=== PATIENT | female | born 1995 | race Caucasian/White ===

== ENCOUNTER 2021-08-20 14:27 | Emergency (ER) | payer BC, OTHER ==
--- NOTE | 2021-08-20 15:27 | RAD REPORT ---
EXAM DESCRIPTION: RAD - Chest Single View - 08/20/2021 3:07 pm CLINICAL HISTORY: SOB;Palpitations COMPARISON: No comparisonsNo comparisons FINDINGS: Lines: None. Lungs: No evidence of edema or pneumonia. Pleural: No significant pleural effusions or pneumothorax. Cardiac: The heart size is within normal limits. Bones: No acute fractures. Other: IMPRESSION: No acute cardiopulmonary disease.
[2021-08-20] MEDS ORDERED: METOCLOPRAMIDE 10 MG/2mL INJ ONE (15:33)
[2021-08-20] MEDS ORDERED: ACETAMINOPHEN 500 MG TAB ONE ×2 (15:33→15:59)
[2021-08-20] MEDS ORDERED: NA CHLORIDE 0.9% 1,000 ML ONE (15:34)
[2021-08-20 15:49] LABS: Urine Blood Negative (Negative); Urine Glucose Negative (Negative); Urine Protein Negative (Negative); Urine Specific Gravity 1.015 (1.005-1.030); Urine pH 6.5 (5.0-7.0)
[2021-08-20 15:50] LABS: Absolute Lymphocytes (CBC) 2.9 K/uL (0.7-4.9); Basophils % 0.8 % (0-1.3); Hematocrit 36.1 % (36.0-45.0); Lymphocytes % 22.5 % (15.3-44.8); MPV 7.2 fL (7.6-11.3); RBC Red Blood Cell Count 4.35 M/uL (3.86-4.86)
[2021-08-20 15:53] LABS: Protime INR 0.94
[2021-08-20 16:26] LABS: Urine Specific Gravity/Preg 1.015 (1.005-1.030)
[2021-08-20 16:40] LABS: SARS-COV-2 RT PCR NEGATIVE (NEGATIVE)
--- NOTE | 2021-08-20 17:35 | RAD REPORT ---
EXAM DESCRIPTION: US - UPPER EXTREMITY VENOUS UNILATE - 08/20/2021 5:16 pm CLINICAL HISTORY: Swelling COMPARISON: None. TECHNIQUE: Real-time sonographic evaluation of the left upper extremity deep venous system was perfo rmed. FINDINGS: Normal compressibility, flow augmentation, phasic flow and spontaneous flow is identified in the upper lower extremity venous system. No intraluminal filling defects seen. IMPRESSION: No DVT in the left upper extremity.
--- NOTE | 2021-08-20 17:43 | RAD REPORT ---
EXAM DESCRIPTION: US - Extremity Venous Uni Ltd - 08/20/2021 5:17 pm CLINICAL HISTORY: Swelling COMPARISON: None. TECHNIQUE: Real-time sonographic evaluation of the left lower extremity deep venous system was perfo rmed. FINDINGS: Normal compressibility, flow augmentation, phasic flow and spontaneous flow is identified in the left lower extremity deep venous system. No intraluminal filling defects seen. IMPRESSION: No DVT in the left lower extremity.
[2021-08-20 17:55] LABS: ALT/SGPT 44 U/L (12-78); AST/SGOT 27 U/L (15-37); Albumin 3.8 g/dL (3.4-5.0); Alkaline Phosphatase 98 U/L (45-117); BUN Blood Urea Nitrogen 6 mg/dL (7-18); Bicarbonate 29 mmol/L (21-32); Bilirubin Direct < 0.1 mg/dL (0-0.2); Bilirubin Total 0.3 mg/dL (0.2-1.0); Glucose Level 142 mg/dL (74-106); Magnesium 2.1 mg/dL (1.8-2.4); Potassium 3.8 mmol/L (3.5-5.1); Protein, Total 8.3 g/dL (6.4-8.2); Sodium Level 139 mmol/L (136-145); Troponin (Emerg Dept Use Only) < 0.02 ng/mL (0.0-0.045)
--- NOTE | 2021-08-20 18:23 | ER ---
Nurse's Notes [facility] Name: Ander Lan Age: 26 yrs Sex: Female : 1995 Arrival Date: 08/20/2021 Time: 14:28 Bed 25 Private MD: Neno Arauz Diagnosis: Acute cystitis Presentation: 08/20 14:33 Chief complaint: Patient states: "My heart has been racing, my left arm hurts, my left aa5 leg hurts and it feels like a dull pain". Pt also reports diarrhea that has improved. Pt reports symptoms began on Sunday. Coronavirus screen: diarrhea. Ebola Screen: No symptoms or risks identified at this time. Initial Sepsis Screen: Does the patient meet any 2 criteria? HR > 90 bpm. Does the patient have a suspected source of infection? No. Patient's initial sepsis screen is negative. Risk Assessment: Do you want to hurt yourself or someone else? Patient reports no desire to harm self or others. Onset of symptoms was July 2021. 14:33 Method Of Arrival: Ambulatory 5 14:33 Acuity: CAMILLA 3 aa5 Triage Assessment: 18:41 Headache History: The patient has had previous headaches and this one is similar to jt3 previous episodes. General: Appears. General: Behavior is calm, cooperative. Pain: Pain level that patient reports is acceptable is 5 out of 10 on a pain scale. Pain began 4 hours ago. Also complains of no other associated symptoms. 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 - Social history:: Smoking status: Patient denies any tobacco usage or history of. Screenin:16 Abuse screen: Denies threats or abuse. Denies injuries from another. Nutritional jt3 screening: No deficits noted. Tuberculosis screening: No symptoms or risk factors identified. Fall Risk None identified. Assessment: 15:16 Pain: Complains of pain in left arm and left leg. Neuro: No deficits noted. jt3 Cardiovascular: Reports palpitations. 15:17 General: Patient placed on monitor technician. EKG obtained. Pt. walked independently to jt3 the bathroom. . Vital Signs: 14:33 BP 123 / 88; Pulse 110; Resp 18 S; Temp 98.1(O); Pulse Ox 98% on R/A; Weight 99.79 kg aa5 (R); Height 5 ft. 4 in. (162.56 cm) (R); 16:03 BP 126 / 86; Pulse 86; Resp 16; Temp 99.5; Pulse Ox 98% on R/A; jt3 17:58 BP 113 / 75; Pulse 86; Resp 16; Temp 98.4; Pulse Ox 98% on R/A; jt3 14:33 Body Mass Index 37.76 (99.79 kg, 162.56 cm) aa5 ED Course: 14:28 Patient arrived in ED. as 14:29 Neno Arauz DO is Private Physician. as 14:33 Arm band placed on. aa5 14:34 Triage completed. aa5 14:38 Sulaiman Bruner PA is PHCP. cp 14:38 Frederick Mariano MD is Attending Physician. cp 14:42 Leonidas Wren, THI is Primary Nurse. jt3 15:07 XRAY Chest (1 view) In Process Unspecified. EDMS 15:16 Patient has correct armband on for positive identification. Placed in gown. Bed in low mh5 position. Call light in reach. Side rails up X 1. Adult w/ patient. Warm blanket given. nuclear monitoring technician on. Pulse ox on. NIBP on. 15:16 EKG done, by ED staff, reviewed by Frederick Mariano MD. 5 15:16 No provider procedures requiring assistance completed. jt3 15:30 Inserted saline lock: 20 gauge in left antecubital area, using aseptic technique. jt3 17:16 UPPER EXTREMITY VENOUS UNILATE In Process Unspecified. EDMS 17:16 US Extremity Venous Unilateral Ltd In Process Unspecified. EDMS 18:34 IV discontinued. jt3 Administered Medications: 15:41 Drug: Reglan (metoCLOPramide) 10 mg Route: IVP; Site: left antecubital; jt3 15:41 Drug: Tylenol 1000 mg Route: PO; jt3 15:42 Drug: NS 0.9% 1000 ml Route: IV; Rate: 1 bolus; Site: left antecubital; jt3 18:30 Drug: Rocephin (cefTRIAXone) 1 grams Route: IV; Rate: calculated rate; Site: left jt3 antecubital; Outcome: 18:23 Discharge ordered by MD. marquez 18:40 Discharged to home with family. jt3 18:40 Condition: good 18:40 Discharge instructions given to patient. 18:42 Patient left the ED. jt3 Signatures: Dispatcher [employer] Lizzy Montes Audri, RN RN aa5 Sulaiman Bruner PA PA cp Martinez, Maria 5 Frederick Mariano MD MD ma2 Leonidas Wren RN RN jt3
--- NOTE | 2021-08-20 18:24 | EDPHYS ---
Physician Documentation [facility] Name: Ander Lan Age: 26 yrs Sex: Female : 1995 Arrival Date: 08/20/2021 Time: 14:28 Bed 25 Private MD: Shaista Arauzh ED Physician Frederick Mariano HPI: 08/20 15:05 This 26 yrs old Female presents to ER via Ambulatory with complaints of cp Headache, Leg Pain, Arm Pain, palpitations. 15:05 The patient presents with a history of heart racing. cp 15:05 Context: The symptoms occur at rest. Onset: The symptoms/episode began/occurred 4 cp day(s) ago. Duration: The patient or guardian reports a single episode, that is still ongoing. Associated signs and symptoms: Pertinent positives: pain and swelling of left arm and left leg. 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 - Social history:: Smoking status: Patient denies any tobacco usage or history of. ROS: 15:10 Constitutional: Negative for body aches, chills, fever, poor PO intake. cp 15:10 Eyes: Negative for injury, pain, redness, and discharge. cp 15:10 Cardiovascular: Positive for palpitations, Negative for chest pain, edema. 15:10 Respiratory: Positive for shortness of breath, Negative for cough, wheezing. Exam: 15:15 Constitutional: The patient appears in no acute distress, alert, awake, cp non-diaphoretic, non-toxic, well developed, well nourished, obese. 15:15 Head/Face: Normocephalic, atraumatic. cp 15:15 Eyes: Periorbital structures: appear normal, Pupils: equal, round, and reactive to light and accomodation, Extraocular movements: intact throughout, Conjunctiva: normal, no exudate, no injection, Sclera: no appreciated abnormality, Lids and lashes: appear normal, bilaterally. 15:15 ENT: External ear(s): are unremarkable, Nose: is normal, Mouth: Lips: moist, Oral mucosa: moist, Posterior pharynx: Airway: no evidence of obstruction, patent. 15:15 Neck: ROM/movement: is normal, is supple, without pain, no range of motions limitations, no meningismus. 15:15 Chest/axilla: Inspection: normal. 15:15 Cardiovascular: Rate: tachycardic, Rhythm: regular, Edema: is not appreciated, JVD: is not appreciated. 15:15 Respiratory: the patient does not display signs of respiratory distress, Respirations: normal, no use of accessory muscles, no retractions, labored breathing, is not present, Breath sounds: are clear throughout, no decreased breath sounds, no stridor, no wheezing. 15:15 Abdomen/GI: Inspection: abdomen appears normal, Palpation: abdomen is soft and non-tender, in all quadrants. 15:15 Back: pain, is absent, ROM is normal. 15:15 Musculoskeletal/extremity: Extremities: grossly normal except: noted in the left upper arm and left upper leg: pain, tenderness, ROM: intact in all extremities, Pulses: noted to be 2+ in the right radial artery and left radial artery. 15:15 Skin: cellulitis, is not appreciated, no rash present. 15:15 Neuro: Orientation: to person, place \\T\\ time. Mentation: is normal, Motor: moves all fours, strength is normal, Sensation: is normal. 15:17 ECG was reviewed by the Attending Physician. cp Vital Signs: 14:33 BP 123 / 88; Pulse 110; Resp 18 S; Temp 98.1(O); Pulse Ox 98% on R/A; Weight 99.79 kg aa5 (R); Height 5 ft. 4 in. (162.56 cm) (R); 16:03 BP 126 / 86; Pulse 86; Resp 16; Temp 99.5; Pulse Ox 98% on R/A; jt3 17:58 BP 113 / 75; Pulse 86; Resp 16; Temp 98.4; Pulse Ox 98% on R/A; jt3 14:33 Body Mass Index 37.76 (99.79 kg, 162.56 cm) aa5 MDM: 14:41 Patient medically screened. cp 18:23 Differential diagnosis: hypoglycemia, otitis, sinusitis, uremia. Data reviewed: vital ma2 signs, nurses notes. Counseling: I had a detailed discussion with the patient and/or guardian regarding: the historical points, exam findings, and any diagnostic results supporting the discharge/admit diagnosis, the presence of at least one elevated blood pressure reading (>120/80) during this emergency department visit, the need for outpatient follow up. Response to treatment: the patient's symptoms have markedly improved after treatment. 08/20 14:55 Order name: Basic Metabolic Panel 08/20 14:55 Order name: CBC with Diff; Complete Time: 16:28 cp 08/20 16:29 Interpretation: Normal except: WBC 13.00; HGB 11.7; MCV 83.0; PLT 414; MPV 7.2; NEUT A cp 9.1. 08/20 14:55 Order name: LFT's cp 08/20 14:55 Order name: Magnesium cp 08/20 14:55 Order name: PT-INR; Complete Time: 16:28 08/20 14:55 Order name: Troponin (emerg Dept Use Only) cp 08/20 14:55 Order name: D-Dimer; Complete Time: 16:28 08/20 16:29 Interpretation: D-DIMER 459; Reviewed. cp 08/20 14:55 Order name: TSH cp 08/20 14:55 Order name: T3 Free cp 08/20 14:55 Order name: Basic Metabolic Panel EDN[facility] 08/20 14:57 Order name: COVID-19 (Coronavirus) Document "Date of Onset" if Symptomatic 08/20 15:15 Order name: Glucose, Ancillary Testing EDNJ 08/20 14:55 Order name: XRAY Chest (1 view); Complete Time: 16:28 08/20 14:55 Order name: EKG; Complete Time: 14:56 cp 08/20 14:55 Order name: Cardiac monitoring; Complete Time: 15:42 cp 08/20 14:55 Order name: EKG - Nurse/Tech; Complete Time: 15:15 08/20 14:55 Order name: IV Saline Lock; Complete Time: 15:42 08/20 14:55 Order name: Labs collected and sent; Complete Time: 15:42 08/20 14:55 Order name: O2 Per Protocol; Complete Time: 15:42 08/20 15:48 Order name: Urine Dipstick-Ancillary; Complete Time: 16:28 EDMS 08/20 16:29 Interpretation: Normal except: UESTR 1+. cp 08/20 15:50 Order name: Urine --Ancillary (enter results); Complete Time: 16:28 eb 08/20 16:00 Order name: US Extremity Venous Unilateral Ltd; Complete Time: 17:55 cp 08/20 16:08 Order name: UPPER EXTREMITY VENOUS UNILATE; Complete Time: 17:55 EDMS 08/20 16:40 Order name: COVID-19/FLU A+B; Complete Time: 16:51 EDMS 08/20 16:51 Interpretation: Reviewed. cp 08/20 14:55 Order name: O2 Sat Monitoring; Complete Time: 15:42 cp 08/20 14:55 Order name: Urine Dipstick-Ancillary (obtain specimen); Complete Time: 15:49 cp 08/20 14:55 Order name: Urine Test (obtain specimen); Complete Time: 15:49 cp 08/20 14:55 Order name: Accucheck Blood Glucose; Complete Time: 15:06 cp EC:17 Rate is 93 beats/min. Rhythm is regular. ID interval is normal. QRS interval is normal. cp QT interval is normal. T waves are Inverted in leads III, aVR. Interpreted by me. Reviewed by me. Administered Medications: 15:41 Drug: Reglan (metoCLOPramide) 10 mg Route: IVP; Site: left antecubital; jt3 15:41 Drug: Tylenol 1000 mg Route: PO; jt3 15:42 Drug: NS 0.9% 1000 ml Route: IV; Rate: 1 bolus; Site: left antecubital; jt3 18:30 Drug: Rocephin (cefTRIAXone) 1 grams Route: IV; Rate: calculated rate; Site: left jt3 antecubital; Disposition: 18:23 Co-signature as Attending Physician, Frederick Mariano MD PA/SHIFT SUPERVISOR RN's history reviewed, ma2 patient interviewed, and examined. I agree with assessment and care plan and confirm the diagnosis (es) above. Disposition Summary: 08/20/21 18:23 Discharge Ordered Location: Home ma2 Condition: Stable ma2 Diagnosis - Acute cystitis ma2 Followup: ma2 - With: Private Physician - When: Tomorrow - Reason: Continuance of care Discharge Instructions: - Discharge Summary Sheet ma2 - Urinary Tract Infection, Adult, [id number] ma2 Forms: - Medication Reconciliation Form ma2 - Thank You Letter ma2 - Antibiotic Education ma2 - Prescription Opioid Use ma2 Prescriptions: - Diclofenac Sodium 75 mg Oral Tablet Sustained Release - take 1 tablet by ORAL route 2 times per day; 30 tablet; Refills: 0, Product ma2 Selection Permitted - Bactrim DS 800-160 mg Oral Tablet - take 1 tablet by ORAL route every 12 hours for 5 days; 14 tablet; Refills: 0, ma2 Product Selection Permitted Signatures: Dispatcher [employer] EDMS Jo Ann Mazariegos RN RN aa5 Sulaiman Bruner PA PA Frederick Ulloa MD MD ma2 Leonidas Wren RN RN jt3 Corrections: (The following items were deleted from the chart) 16:01 14:57 CORONAVIRUS ordered. EDMS EDMS 16:01 14:57 Influenza Screen (A \\T\\ B)+[id number].BRZ ordered. EDMS EDMS
[2021-08-20 18:49] VITALS: O2SAT 98
[2021-08-20] MEDS ORDERED: WATER FOR INJ,STERILE 10 ML ONE (18:50)
[2021-08-20] MEDS ORDERED: CEFTRIAXONE 1000 MG/VIAL ONE (18:50)
[2021-08-20 18:53] VITALS: BP 113/75; TEMP 98.4
== END 2021-08-20 18:42 | disposition home or self-care (01) ==
LOC: ER 14:27
DX: N30.00 Acute cystitis without hematuria (principal); Z20.822 Contact with and (suspected) exposure to COVID-19
CPT/HCPCS: 93005; 85025; 80048; 36415; 83735; 81025; 85610; 82947; 85379; 80076; 84443; 81003; 84484; 84481; 0240U; 71045; 93971 ×2; 96375; 96374; 99284; J2765; J7030

== ENCOUNTER 2022-03-16 16:35 | Inpatient (IN) | payer BC ==
--- OUTSIDE RECORDS SUMMARY | 2022-03-16 16:39 | XMS REPORT | Continuity of Care Document ---
:1995 Author Organization [facility] t Address [address] [place] [address] Care Team Providers Name Role Phone JAYE ARAUZ Primary Care Physician Unavailable Ileana Arauz Attending Clinician Unavailable Verito Nair Attending Clinician Unavailable UNKNOWN Attending Clinician Unavailable TANYA KRAUSE Attending Clinician Unavailable Angella Attending Clinician Unavailable Radha JAVIER Attending Clinician Unavailable Lamberto LYMAN Attending Clinician JAROD FINK Attending Clinician Unavailable HODA WHITNEY Attending Clinician Unavailable ROBBIE CEDENO Attending Clinician Unavailable Jama LYMAN Attending Clinician King NURA C Attending Clinician Doctor Unassigned, Name Attending Clinician Unavailable Verito Nair Admitting Clinician Unavailable Davonte Admitting Clinician Unavailable HODA WHITNEY Admitting Clinician Unavailable ROBBIE CEDENO Admitting Clinician Unavailable Payers Payer Name Policy Type Policy Number Effective Date Expiration Date S [place] BCBS PPO POS EPO [id number] 2021 CHOICE 00:00:00 PPO/EPO - BCBS [id number] CVCP-BCBS [id number] Problems Condition Condition Condition Status Onset Resolution Last Treating Co mments Source Name Details Category Date Date Treatment Clinician Date 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 00:00: of 00 Medicin e Type 1 Type 1 Disease Active [facility] diabetes diabetes 10-29 Colleg [facility] mellitus mellitus 00:00: of 00 Medicin e Allergies, Adverse Reactions, Alerts Allergy Allergy Status Severity Reaction(s) Onset Inactive Treating Comm ents Source Name Type Date Date Clinician No Known DA Active U 2020-10 [facility] 11-29 [facility] 00:[facility]: [facility] 00 [facility] NO KNOWN Allergy Active [facility] Social History Social Habit Start Date Stop Date Quantity Comments Source History [facility] Alcohol Comment of Medici ne Exposure to Not sure [facility] Colleg e SARS-CoV-2 (event) of Med icine History [facility] Alcohol Std Drinks of Med icine History [facility] Alcohol Binge of Medicine History of tobacco Cigarette Smoker [facility] use of Medicine Alcohol intake 2021-08-23 2021-08-23 Lifetime [facility] Col lege 00:00:00 00:00:00 non-drinker of Medicine (finding) History [facility] 2019-09-29 2019-09-29 1 [facility] ge Alcohol Frequency 00:00:00 00:00:00 of [facility] Cigarettes smoked 2019-08-20 2019-08-20 [facility] current (pack per 00:00:00 00:00:00 of [facility] day) - Reported Cigarette 2019-08-20 2019-08-20 [facility] pack-years 00:00:00 00:00:00 of Medicine Tobacco Comment 2019-08-20 2019-08-20 Now smokes E-cigg [facility] 00:00:00 00:00:00 of Medicine Tobacco use and 2019-08-20 2019-08-20 Never used [facility] exposure 00:00:00 00:00:00 of Medicine Sex [birth year] F [facility] 00:00:00 00:00:00 of Medicine Smoking Status Start Date Stop Date Source Former smoker 2019-08-20 00:00:00 2019-08-20 00:00:00 [facility] of Medicine Medications Ordered Filled Start Stop Current Ordering Indication Dosage Frequency Signature Comments Components Source Medication Medication Date Date Medication? Clinician (SIG) Name Name Insulin 2020-10 Yes 1{pump} 1 Pump Use [facility] 0-26 as College Pump 11:12: Directed. of (ONETOUCH 56 Medicin PING e INSULIN PUMP) KIT Insulin Yes NOVOLOG [facility] Infusion - INSULIN College Pump 18:37: PER of (ONETOUCH 52 INSULIN Medicin PING PUMP . e INSULIN PUMP) KIT acetaminoph 0 Yes daily as [facility] en-codeine 4-21 needed. Colleg e (TYLENOL 00:00: of #3) 300-30 00 Medicin MG per e tablet diazepam 0 Yes as needed. [facility] (VALIUM) 10 4-21 College mg tablet 00:00: of 00 Medicin e methocarbam 0 Yes 2 times [facility] ol 4-21 daily as College (ROBAXIN) 00:00: needed. of 500 MG 00 Medicin tablet e acetaminoph Yes daily as [facility] en-codeine 4-21 needed. Colleg e (TYLENOL 00:00: of #3) 300-30 00 Medicin MG per e tablet diazepam 0 Yes as needed. [facility] (VALIUM) 10 4-21 College mg tablet 00:00: of 00 Medicin e methocarbam 2020-0 Yes 2 times [facility] ol 4-21 daily as College (ROBAXIN) 00:00: needed. of 500 MG 00 Medicin tablet e Blood 2020- No [facility] Glucose 4-19 - College Monitoring 00:00: 00:00 of Suppl 00 :00 Medicin (ACCU-CHEK e GUIDE) w/Device KIT gabapentin 0 Yes two times [facility] (NEURONTIN) 4-11 daily. Colleg e 600 MG 00:00: of tablet 00 Medicin e gabapentin 2020-0 Yes two times [facility] (NEURONTIN) 4-11 daily. Colleg e 600 MG 00:00: of tablet 00 Medicin e TIROSINT 2020-0 Yes daily. [facility] 100 MCG 4-10 College CAPS 00:00: of 00 Medicin e TIROSINT 2020-0 Yes daily. [facility] 100 MCG 4-10 College CAPS 00:00: of 00 Medicin e ACCU-CHEK 2020-0 2020- No [facility] GUIDE 4-03 04-26 College 00:00: 00:00 of 00 :00 Medicin e DUEXIS 2020-0 Yes daily. [facility] 800-26.6 MG 3-20 College TABS 00:00: of 00 Medicin e DUEXIS 2020-0 Yes daily. [facility] 800-26.6 MG 3-20 College TABS 00:00: of 00 Medicin e OTEZLA 30 2020-0 Yes daily. [facility] MG TABS 3-03 College 00:00: of 00 Medicin e OTEZLA 30 2020-0 Yes daily. [facility] MG TABS 3-03 College 00:00: of 00 Medicin e tizanidine 2020-0 Yes as needed. [facility] (ZANAFLEX) 2 [facility] 4 MG tablet 00:00: of 00 Medicin e tizanidine 2020-0 Yes as needed. [facility] (ZANAFLEX) 2 [place] 4 MG tablet 00:00: of 00 Medicin e Tirosint Tirosint 2020-0 Yes Neno 1 capsule Common 05-28 [facility]uz in the Spirit 00:00: morning on - [facility]I 00 an empty [facility] fluocinolon 2020-0 Yes as needed. [facility] e acetonide 05-24 [place] (SYNALAR) 00:00: of 0.01 % 00 Medicin external e solution fluocinolon 2020-0 Yes as needed. [facility] e acetonide 05-24 [place] (SYNALAR) 00:00: of 0.01 % 00 Medicin external e solution etodolac 2020-0 Yes as needed. [facility] (LODINE) 7 [place] 500 MG 00:00: of tablet 00 Medicin e etodolac 2020-0 Yes as needed. [facility] (LODINE) 7 College 500 MG 00:00: of tablet 00 Medicin e Accu-Chek 2020-0 2020- No [facility] FastClix 6-25 04-26 [place] Lancets 00:00: 00:00 of MISC 00 :00 Medicin e Accu-Chek Accu-Chek 2020-0 Yes Neno 1 lancet Common FastClix FastClix 6- [facility] Lancets Lancets 00:00: - [facility]I 00 [facility] Blood 2020-0 2020- No [facility] Glucose 04-08 [place] Monitoring 00:00: 00:00 of Suppl 00 :00 Medicin (ACCU-CHEK e GUIDE ME) w/Device KIT TIROSINT 2020- No [facility] 125 MCG 04-08 [place] CAPS 00:00: 00:00 of 00 :00 Medicin e Insulin Yes Inject [facility] Aspart 2-03 into the College (NOVOLOG 20:16: skin. of [place]) 44 Medicin e etodolac Yes 300mg Take 1 Cap [facility] (LODINE) 1-21 by mouth 3 Colle ge 300 MG 00:00: times of capsule 00 daily. Medicin e acetaminoph Yes [id number] 1{tbl} Take 1 Tab [facility] en-codeine 1-13 by mouth Colle ge (TYLENOL 00:00: every 4 of #3) 300-30 00 hours as Medic in MG per needed for e tablet Pain. NOVOLOG 100 2018-10- No daily. [facility] UNIT/ML 15 12-01 College injection 00:00: 00:00 of 00 :00 Medicin e SANJAY 2018-10 Yes Take by [facility] 3-0.02 MG 1-06 mouth [place] per tablet 00:00: daily. of 00 Medicin e Insulin 2018-10 Yes Inject [facility] Aspart 0-23 into the College (NOVOLOG 15:04: skin. of [place]) 22 Medicin e labetalol 2018-10 Yes 100mg Take 100 [facility] (NORMODYNE) 0-16 mg by [place] 100 MG 00:00: mouth of tablet 00 daily. Medicin e labetalol 2018-10 Yes 100mg Take 100 [facility] (NORMODYNE) 0-16 mg by College 100 MG 00:00: mouth of tablet 00 daily. Medicin e levothyroxi 2018-10 Yes 125ug Take 125 [facility] ne 0-16 mcg by [place] (SYNTHROID) 00:00: mouth of 125 MCG 00 daily. Medicin tablet e labetalol 2018-10 Yes 100mg Take 100 [facility] (NORMODYNE) 0-16 mg by [place] 100 MG 00:00: mouth of tablet 00 daily. Medicin e levothyroxi 2018-10 Yes 125ug Take 125 [facility] ne 0-16 mcg by [place] (SYNTHROID) 00:00: mouth of 125 MCG 00 daily. Medicin tablet e labetalol 2018-10 Yes 100mg Take 100 [facility] (NORMODYNE) 0-16 mg by [place] 100 MG 00:00: mouth of tablet 00 daily. Medicin e etodolac 2018-10 Yes 500mg Take 500 [facility] (LODINE) 0-01 mg by [place] 500 MG 00:00: mouth two of tablet 00 times Medicin daily. e gabapentin 2018-10 Yes 10mg Take 10 mg [facility] (NEURONTIN) 0-01 by mouth Leon [facility] 300 MG 00:00: two times of capsule 00 daily. As Medicin needed e gabapentin 2018-10 Yes 10mg Take 10 mg [facility] (NEURONTIN) 0-01 by mouth [facility] 300 MG 00:00: two times of capsule 00 daily. Medicin e gabapentin 2018-10- No 10mg Take 10 mg [facility] (NEURONTIN) 0-01 04-26 by mouth Col lege 300 MG 00:00: 00:00 two times of capsule 00 :00 daily. As Medicin needed e XULANE Yes 35ug 35 mcg by [facility] 150-35 9-30 Patient College MCG/24HR 00:00: Administer of patch 00 ed route Medicin every 7 e days. XULANE Yes 35ug 35 mcg by [facility] 150-35 9-30 Patient College MCG/24HR 00:00: Administer of patch 00 ed route Medicin every 7 e days. escitalopra Yes 20mg Take 20 mg [facility] m (LEXAPRO) 9-16 by mouth [facility] 20 MG 00:00: daily. of tablet 00 Medicin e escitalopra Yes 10mg Take 10 mg [facility] m (LEXAPRO) 9-16 by mouth [facility] 10 MG 00:00: daily. of tablet 00 Medicin e escitalopra Yes 10mg Take 10 mg [facility] m (LEXAPRO) 9-16 by mouth [facility] 10 MG 00:00: daily. of tablet 00 Medicin e escitalopra Yes 20mg Take 20 mg [facility] m (LEXAPRO) 9-16 by mouth [facility] 20 MG 00:00: daily. of tablet 00 Medicin e naproxen 2019-0 Yes 500mg Take 500 [facility] (NAPROSYN) 7-22 mg by College 500 MG 00:00: mouth as of tablet 00 needed. Medicin e naproxen 2019-0 Yes 500mg Take 500 [facility] (NAPROSYN) 7-22 mg by [place] 500 MG 00:00: mouth of tablet 00 daily. Medicin e naproxen 2019-0 Yes 500mg Take 500 [facility] (NAPROSYN) 7-22 mg by College 500 MG 00:00: mouth as of tablet 00 needed. Medicin e Acetone, 2019-0 Yes daily. [facility] Urine, Test 7-15 College (RELION 00:00: of KETONE) 00 Medicin STRP e insulin 2018-0 Yes 15U Inject 15 [facility] aspart 7-02 Units into [place] (NOVOLOG) 00:00: the skin of 100 UNIT/ML 00 daily. Medici n injection e insulin 2018-0 Yes 15U Inject 15 [facility] aspart 7-02 Units into [place] (NOVOLOG) 00:00: the skin of 100 UNIT/ML 00 daily. Medici n injection e insulin Yes 15U Inject 15 [facility] aspart 7-02 Units into [place] (NOVOLOG) 00:00: the skin of 100 UNIT/ML 00 daily. Medici n injection e Etodolac Etodolac Yes Neno TAKE ONE C ommon Arauz TABLET BY Spirit MOUTH - CHI TWICE A St DAY WITH [facility] Gabapentin Gabapentin Yes Neno 1 capsule Common Arauz [facility] Contour Contour Yes Neno 1 test Commo n Next Test Next Test Arauz strip Spi rit [facility] NovoLog NovoLog Yes Neno MAX 160 Comm on Arauz UNITS Spirit DIRECTED - CHI FOR PUMP [facility] Labetalol Labetalol Yes Neno 1 tablet Common HCl HCl Arauz [facility] Omeprazole Omeprazole Yes Neno 1 capsule Common [facility] Ketostix Ketostix Yes Neno as Commo n Arauz directed [facility] Escitalopra Escitalopra Yes Neno 1 tablet Common m Oxalate m Oxalate Arauz Spir it - CHI [facility] Labetalol Labetalol Yes Neno TAKE ONE Common HCl HCl Arauz TABLET BY Spirit MOUTH - CHI DAILY [facility] Etodolac Etodolac Yes Neno 1 tablet C ommon Arauz with food [facility] Gabapentin Gabapentin Yes Neno 1 capsule Common Arauz [facility] Vital Signs Vital Name Observation Time Observation Value Comments Source Systolic blood 2021-08-23 16:10:00 136 mm[Hg] [facility] Medicine Diastolic blood 2021-08-23 16:10:00 89 mm[Hg] [facility] Medicine Heart rate 2021-08-23 16:10:00 95 [facility] Body temperature 2021-08-23 16:10:00 36.89 [place] [facility] Respiratory rate 2021-08-23 16:10:00 16 /min [facility] Body height 2021-08-23 16:10:00 162.6 cm [facility] Body weight 2021-08-23 16:10:00 109.68 kg [facility] BMI 2021-08-23 16:10:00 41.50 kg/m2 [facility] Systolic blood 2021-02-21 18:23:00 116 mm[Hg] [facility] Medicine Diastolic blood 2021-02-21 18:23:00 83 mm[Hg] [facility] Medicine Heart rate 2021-02-21 18:23:00 84 /min [facility] Body temperature 2021-02-21 18:23:00 36.61 [place] [facility] Body height 2021-02-21 18:23:00 162.6 cm [facility] Body weight 2021-02-21 18:23:00 106.142 kg [facility] BMI 2021-02-21 18:23:00 40.17 kg/m2 [facility] Systolic blood 2019-12-01 20:15:00 139 mm[Hg] [facility] Medicine Diastolic blood 2019-12-01 20:15:00 82 mm[Hg] [facility] Medicine Heart rate 2019-12-01 20:15:00 104 /[facility] Body temperature 2019-12-01 20:15:00 36.61 [place] [facility] Body height 2019-12-01 20:15:00 162.6 cm [facility] Body weight 2019-12-01 20:15:00 101.152 kg [facility] BMI 2019-12-01 20:15:00 38.28 kg/m2 [facility] Systolic blood 2019-08-20 14:23:00 105 mm[Hg] [facility] pressure Medicine Diastolic blood 2019-08-20 14:23:00 76 mm[Hg] [facility] Medicine Heart rate 2019-08-20 14:23:00 98 /min [facility] Body temperature 2019-08-20 14:23:00 36.67 [place] [facility] Respiratory rate 2019-08-20 14:23:00 16 /min [facility] Body height 2019-08-20 14:23:00 162.6 cm [facility] Body weight 2019-08-20 14:23:00 92.987 kg [facility] BMI 2019-08-20 14:23:00 35.19 kg/m2 [facility] Procedures Procedure Date / Time Performed Performing Clinician Andrzej caban [id number] 2021-10-27 00:00:00 [facility] [id number] 2021-10-27 00:00:00 [facility] [id number] 2021-10-27 00:00:00 [facility] Plan of Care Planned Activity Planned Date Details Comments Source Future Scheduled 2021-08-24 CT CHEST WO CONTRAST Expected: [facility] Test 00:00:00 [code = 87970-6] 08/24/2021, of Medicine Expires: 02/22/2022 Future Scheduled 2021-08-23 XR LUMBAR SPINE AP 1 Occurrences [facility] Test 11:51:50 LATERAL OBLIQUES starting of Medicine FLEXION AND EXTENSION 08/23/2021 until [code = 31169-5] 08/23/2022 Future Scheduled 2021-08-23 MRI LUMBAR SPINE WO 1 Occurrences [facility] Test 11:51:50 CONTRAST [code = starting of Medicine 95754-5] 08/23/2021 until 08/23/2022 Future Scheduled 2021-08-23 BMI FOLLOW UP PLAN [facility] [employer] Test 11:45:14 [code = BMI FOLLOW UP of Med icine PLAN] Future Scheduled 2021-08-23 COVID-19 Vaccine (1) [facility] Test 11:12:25 [code = COVID-19 of Medicine Vaccine (1)] Future Scheduled 2021-08-23 TETANUS SHOT (ADULT) [facility] [employer] Test 11:12:25 [code = TETANUS SHOT of Medi cine (ADULT)] Future Scheduled 2021-08-23 Diabetic foot [facility] Test 11:12:25 examination of Medicine (regime/therapy) [code = 538165942] Future Scheduled 2021-08-23 ANNUAL DIABETIC [facility] Test 11:12:25 RETINOPATHY SCREENING of Med icine [code = ANNUAL DIABETIC RETINOPATHY SCREENING] Future Scheduled 2021-08-23 Hepatitis C screening [facility] Test 11:12:25 (procedure) [code = of Medic ine 300502551] Future Scheduled 2021-08-23 Human immunodeficiency [facility] Test 11:12:25 virus screening of Medicine (procedure) [code = 419876137] Future Scheduled 2021-08-23 Screening for malignant [facility] Test 11:12:25 neoplasm of cervix of Medici ne (procedure) [code = 223560796] Future Scheduled 2021-08-23 FLU VACCINE > 6 MONTHS [facility] Test 11:12:25 [code = FLU VACCINE > 6 of M edicine MONTHS] Future Scheduled Diabetic foot [facility] Col lege Test examination of Medicine (regime/therapy) [code = 154206240] Future Scheduled ANNUAL DIABETIC [facility] C ollege Test RETINOPATHY SCREENING of Med icine [code = ANNUAL DIABETIC RETINOPATHY SCREENING] Future Scheduled BMI FOLLOW UP PLAN [facility] [employer] Test [code = BMI FOLLOW UP of Med icine PLAN] Future Scheduled Hepatitis C screening [facility] Test (procedure) [code = of Medic ine 553093560] Future Scheduled Human immunodeficiency [facility] Test virus screening of Medicine (procedure) [code = 484250782] Future Scheduled Screening for malignant [facility] Test neoplasm of cervix of Medici ne (procedure) [code = 721217287] Future Scheduled FLU VACCINE > 6 MONTHS [facility] [employer] Test [code = FLU VACCINE > 6 of M edicine MONTHS] Future Scheduled SPIROMETRY WITHOUT [facility] [employer] Test BRONCHDILATOR [code = of Med icine 08213] Future Scheduled TETANUS SHOT (ADULT) [facility] [employer] Test [code = TETANUS SHOT of Medi cine (ADULT)] Future Scheduled BMI FOLLOW UP PLAN [facility] [facility] [employer] Test [code = BMI FOLLOW UP of Med icine PLAN] Future Scheduled HIV SCREENING [code = [facility] Test HIV SCREENING] of Medicine Future Scheduled CERVICAL CANCER [facility] Test SCREENING 3 YEAR FOLLOW of M edicine UP [code = CERVICAL CANCER SCREENING 3 YEAR FOLLOW UP] Future Scheduled TETANUS SHOT (ADULT) [facility] [employer] Test [code = TETANUS SHOT of Medi cine (ADULT)] Future Scheduled Diabetic foot [facility] Col lege Test examination of Medicine (regime/therapy) [code = 393415351] Future Scheduled ANNUAL DIABETIC [facility] C ollege Test RETINOPATHY SCREENING of Med icine [code = ANNUAL DIABETIC RETINOPATHY SCREENING] Future Scheduled BMI FOLLOW UP PLAN [facility] [facility] [employer] Test [code = BMI FOLLOW UP of Med icine PLAN] Future Scheduled HIV SCREENING [code = [facility] Test HIV SCREENING] of Medicine Future Scheduled CERVICAL CANCER [facility] Test SCREENING 3 YEAR FOLLOW of M edicine UP [code = CERVICAL CANCER SCREENING 3 YEAR FOLLOW UP] Future Scheduled TETANUS SHOT (ADULT) [facility] [employer] Test [code = TETANUS SHOT of Medi cine (ADULT)] Future Scheduled COVID-19 Vaccine (1) [facility] Test [code = COVID-19 of Medicine Vaccine (1)] Future Scheduled CT CHEST W CONTRAST 1 Occurrences [facility] Test [code = 11683-6] starting of Medicine 12/01/2019 until 07/01/2020 Encounters Start End Encounter Admission Attending Care Care Encounter Source Date/Time Date/Time Type Type Clinicians Facility Department ID 2021-11-28 Outpatient Arauz, [facility] [id number] Common 11:23:00 Neno [facility] 2021-11-23 Outpatient Arauz, [facility] [id number] Common 14:09:15 Neno [id number] [facility] 2021-11-23 Outpatient Arauz, [facility] [id number] Common 14:06:38 Neno 22463 [facility] 2021-11-23 Outpatient Arauz, STLMLC STL[facility] [id number] Common 14:06:06 Neno 13910 [facility] 2021-11-23 Outpatient Arauz, STLMLC STLMLC [id number] Common 13:57:03 Neno [id number] [facility] 2021-11-23 Outpatient Arauz, STLMLC STLMLC [id number] Common 13:45:21 Neno [id number] [facility] 2021-11-23 Outpatient Arauz, STLMLC STLMLC [id number] Common 13:32:14 Neno [id number] [facility] 2021-11-23 Outpatient Arauz, STLMLC STLMLC [id number] Common 13:27:40 Neno [id number] [facility] 2021-11-23 Outpatient Arauz, STLMLC STLMLC [id number] Common 11:25:26 Neno [id number] [facility] 2021-11-23 Outpatient Arauz, STLMLC STLMLC [id number] Common 11:17:10 Neno 99417 [facility] 2021-11-23 Outpatient Arauz, STLMLC STLMLC [id number] Common 11:15:38 Neno [id number] [facility] 2022-03-13 2022-03-13 ambulatory STLMLC STLMLC [id number] Common 00:00:00 00:00:00 [facility] 2022-03-13 2022-03-13 ambulatory STLMLC STLMLC [id number] Common 00:00:00 00:00:00 [facility] 2022-02-24 2022-02-24 ambulatory STLMLC STLMLC [id number] Common 00:00:00 00:00:00 [facility] 2022-02-16 2022-02-16 ambulatory STLMLC STLMLC [id number] Common 00:00:00 00:00:00 [facility] 2022-02-16 2022-02-16 ambulatory STLMLC STLMLC [id number] Common 00:00:00 00:00:00 [facility] 2022-02-16 2022-02-16 ambulatory STLMLC STLMLC [id number] Common 00:00:00 00:00:00 [facility] 2022-02-16 2022-02-16 ambulatory STLMLC STLMLC [id number] Common 00:00:00 00:00:00 [facility] 2021-11-28 2021-11-28 ambulatory STLMLC STLMLC [id number] Common 00:00:00 00:00:00 [facility] 2021-11-15 2021-11-15 ambulatory STLMLC STLMLC [id number] Common 00:00:00 00:00:00 [facility] 2021-10-27 2021-10-28 Inpatient [facility] TELE [id number] [facility] 01:59:00 16:16:00 , Ángel 04 [facility] 2021-10-27 2021-10-28 Inpatient [facility] TELE [id number] [facility] 01:59:00 16:16:00 , Ángel [id number] [facility] 2021-10-26 2021-10-26 ambulatory STLMLC STLMLC [id number] Common 00:00:00 00:00:00 [facility] 2021-10-18 2021-10-18 ambulatory STLMLC STLMLC [id number] Common 00:00:00 00:00:00 [facility] 2021-10-10 2021-10-10 Outpatient YSABEL KRAUSE, SLE SLE [id number] [facility] 00:00:00 00:00:00 [facility] 2021-10-03 2021-10-03 Outpatient EL DEMETRIUSIL, [facility]H [facility] [id number] [facility] 00:00:00 00:00:00 [facility] 2021-09-30 2021-09-30 Outpatient [facility] ENDO [id number] [facility] 10:22:00 10:22:00 , Ángel [id number] [facility] 2021-09-30 2021-09-30 Outpatient [facility] BP0 [id number] [facility] 10:22:00 10:22:00 Ángel [facility] 2021-09-28 2021-09-28 Outpatient UNKNOWN [facility]AC[facility] LABO [id number] [facility] 16:30:00 16:30:00 [id number] [facility] 2021-09-09 2021-09-09 ambulatory STLMLC STLMLC [id number] Common 00:00:00 00:00:00 [facility] 2021-09-02 2021-09-02 ambulatory STLMLC STLMLC [id number] Common 00:00:00 00:00:00 [facility] 2021-09-02 2021-09-02 ambulatory STLMLC STLMLC [id number] Common 00:00:00 00:00:00 [facility] 2021-09-01 2021-09-01 ambulatory STLMLC STLMLC [id number] Common 00:00:00 00:00:00 [facility] 2021-08-31 2021-08-31 ambulatory STLMLC STLMLC [id number] Common 00:00:00 00:00:00 [facility] 2021-08-31 2021-08-31 ambulatory STLMLC STLMLC [id number] Common 00:00:00 00:00:00 [facility] 2021-08-31 2021-08-31 ambulatory STLMLC STLMLC [id number] Common 00:00:00 00:00:00 [facility] 2021-08-26 2021-08-26 Outpatient STLMLC STLMLC [id number] Common 00:00:00 00:00:00 [facility] 2021-08-26 2021-08-26 Outpatient STLMLC STLMLC [id number] Common 00:00:00 00:00:00 [facility] 2021-08-23 2021-08-23 Office JENSEN JAVIER [id number] [facility] 11:05:09 16:49:04 Visit GEOVANNA AMBULATOR [id number] College Y [id number] of [id number] [facility] jered 300 e 2021-08-19 2021-08-19 Outpatient STLMLC STLMLC [id number] Common 00:00:00 00:00:00 [facility] 2021-08-18 2021-08-18 Outpatient STLMLC STLMLC [id number] Common 00:00:00 00:00:00 [facility] 2021-08-18 2021-08-18 Outpatient STLMLC STLMLC [id number] Common 00:00:00 00:00:00 [facility] 2021-07-26 2021-07-26 Outpatient STLMLC STLMLC [id number] Common 00:00:00 00:00:00 [facility] 2021-07-25 2021-07-25 Outpatient STLMLC STLMLC [id number] Common 00:00:00 00:00:00 [facility] 2021-07-25 2021-07-25 Outpatient STLMLC STLMLC [id number] Common 00:00:00 00:00:00 [facility] 2021-07-22 2021-07-22 Outpatient STLMLC STLMLC [id number] Common 00:00:00 00:00:00 [facility] 2021-07-06 2021-07-06 Outpatient STLMLC STLMLC [id number] Common 00:00:00 00:00:00 [facility] 2021-07-05 2021-07-05 Outpatient STLMLC STLMLC [id number] Common 00:00:00 00:00:00 [facility] 2021-07-01 2021-07-01 Outpatient STLMLC STLMLC [id number] Common 00:00:00 00:00:00 [facility] 2021-06-30 2021-06-30 Outpatient STLMLC STLMLC [id number] Common 00:00:00 00:00:00 [facility] 2021-05-26 2021-05-26 Outpatient STLMLC STLMLC [id number] Common 00:00:00 00:00:00 [facility] 2021-02-21 2021-02-21 Office Ludwig Whitney [facility] [id number] [facility] 13:05:30 15:05:48 Visit AMBULATOR 350.1.13.21 College Y 0.2.7.2.686 of [id number] [facility] jered 810 e 2021-02-21 2021-02-21 Outpatient EL SLEH [facility] [id number] [facility] 00:00:00 00:00:00 2021-01-28 2021-01-28 Outpatient EL NELIDA, SLEH SLEH [id number] SLEH 00:00:00 00:00:00 HAILEE 2020-10-14 2020-10-14 Outpatient [facility]ML[facility] [id number] Common 00:00:00 00:00:00 [facility] 2020-07-16 2020-07-16 Outpatient YSABEL FINK SLEH SLEH [id number] SLEH 00:00:00 00:00:00 MATTY 2020-07-15 2020-07-15 [facility] [id number] Common 09:50:00 09:50:00 t [employer] [facility] it Drive [facility] 2020-06-21 2020-06-21 Outpatient EL SLEH SLEH [id number] [facility]H 00:00:00 00:00:00 2020-06-17 2020-06-17 [facility] [id number] Common 12:11:00 12:11:00 [employer] [facility] it Drive [facility] 2020-05-31 2020-05-31 Outpatient YSABEL FINK SLEBrittany SLEH [id number] SLEH 00:00:00 23:59:00 MATTY 2020-05-28 2020-05-28 [facility] [id number] Common 14:46:00 14:46:[address] [facility] [address] [facility] 2020-05-26 2020-05-26 [facility] [id number] Common 15:30:00 15:30:[address] [facility] 2020-05-25 2020-05-25 [facility] [id number] Common 11:21:00 11:21:[address] [facility] 2020-05-06 2020-05-06 [facility] [id number] Common 21:39:00 21:39:[address] [facility] 2020-05-04 2020-05-04 [facility] [id number] Common 12:36:00 12:36:[address] [facility] 2020-04-19 2020-04-19 [facility] [id number] Common 09:30:00 09:30:[address] [facility] 2020-04-07 2020-04-07 [facility] [id number] Common 11:45:00 11:45:[address] [facility] 2020-04-05 2020-04-05 [facility] [id number] Common 07:50:00 07:50:[address] [facility] 2020-01-28 2020-01-28 [facility] [id number] Common 14:20:00 14:20:[address] [facility] [address] [facility] 2020-01-09 2020-01-09 [facility] [id number] Common 14:44:00 14:44:[address] [facility] 2019-12-30 2019-12-30 [facility] [id number] Common 10:15:00 10:15:[address] [facility] 2019-12-01 2019-12-01 Office Ludwig Whitney [facility] [id number] [facility] 14:00:30 16:26:58 Visit AMBULATOR [id number] College Y [id number] of [id number] [facility] jered 810 e 2019-10-15 2019-10-15 [facility] [id number] Common 16:13:00 16:13:[address] [facility] 2019-10-09 2019-10-09 [facility] [id number] Common 16:39:00 16:39:[address] [facility] 2019-09-30 2019-09-30 [facility] [id number] Common 10:45:00 10:45:[address] [facility] 2019-09-23 2019-09-23 [facility] [id number] Common 17:09:00 17:09:[address] [facility] 2019-09-05 2019-09-05 [facility] [id number] Common 13:12:00 13:12:[address] [facility] 2019-08-29 2019-08-29 [facility] [id number] Common 14:49:00 14:49:[address] [facility] 2019-08-20 2019-08-20 Office Jama [facility] [id number] [place] [address] 09:05:45 10:30:08 Visit Faust AMBULATOR 350.1.13.21 College Y 0.2.7.2.686 of [id number] [facility] jered 340 e 2019-08-13 2019-08-13 [facility] [id number] Common 10:00:00 10:00:[address] [facility] 2019-07-30 2019-07-30 [facility] [id number] Common 15:52:00 15:52:[address] [facility] 2019-07-30 2019-07-30 [facility] [id number] Common 13:45:00 13:45:00 t [employer] Spir it Kent[facility] Family [facility] 2019-06-18 2019-06-18 Office Caden Ashraf [facility] [id number] 08:51:31 09:33:24 Visit C Rachelle 350.1.13.10 [place] 4.2.7.2.686 [phone] nal 044 [facility] 2019-06-11 2019-06-11 Orders Doctor CHERRY [id number] 00:00:00 00:00:00 Only Unassigned, JJ 350.1.13.10 [place] [facility] 4.2.7.2.686 [id number] 2019-05-19 2019-05-19 Patient Caden Ashraf [facility] [id number] 00:00:00 00:00:00 Secure Msg C [place] 350.1.13.10 [place] 4.2.7.2.686 [facility] [phone] [address] Results Test Description Test Time Test Comments Results Result Comments Source SURGICAL 2021-10-31 17:08:00 Test Item Value Reference Range Interpretation Commmee littlejohn SURGICAL RUN (test DATE: 10/31/21 [facility] - LAB PAGE 1 RUN TIME: code = 1708 Specimen Inquiry RUN USER: INTERFACE SR) PATIENT: DANIEL ROMERO LOC: P.5N POD B U #: [id number] AGE/SX: 26/F ROOM: [facility] RE10/27/21REG DR: Ángel Nair MD : 93 BED: 1 DIS: 1 STATUS: DIS IN TLOC: SPEC #: [id number] RECD: -[id number] STATUS: SOUGeovanny RE #: [id number] LEON: 10/27/21-[address] [facility] [address]: Ángel Nair MD ENTERED: 10/27/21-1440 SP TYPE: SURGICAL OTHR DR[facility] ORDERED: 81558/2, 10314/3, ANATOMIC SPEC HISTOLOGY: TISSUE ID BLK PCS LULY LEV / PROCEDURE DISPOSITION ____ ___ ___ ___ ___ STOMNT A 1 1 LIVER, NOS B 1 2 1 TISSUES: A. STOMACH SUBTOTAL / TOTAL RESECTION NOT TUMOR/SLEEVE - Partial Stomach B. LIVER, NOS - Liver Biopsy FINAL DIAGNOSIS A. STOMACH, SLEEVE GASTRECTOMY: No significant pathologic changes. B. LIVER, WEDGE BIOPSY: Moderate zonal m acrovesicular steatosis. ADDITONAL LIVER STUDIES:The iron stain shows no deposits. The reticulin stai n reveals a normal hepatocyte network.There is no fibrosis. PAS with diastase stain does not reve al alpha 1 anti-trypsindeposits. There is no hepatocyte ballooning, lobular inflammation or tria ditis. GROSS DESCRIPTION A. Received in formalin and labeled with the patient's name, yaz e of and designatedspecimen A "partial stomach". Received is a portion of stomach that katie ures 21 cm inlength with a diameter of up to 4 cm. The serosal surface is pink slightly wrinkled wi th astaple lining running longitudinally. The specimen is opened longitudinally down thestapl e lining to reveal pink unremarkable folds along with a moderate amount of brownmucoid material. Th e wall thickness measures an average of 0.3 cm. The specimen issubmitted in cassette A. B . Received in formalin and labeled with the patient's name, date of and designatedspecimen B "liver biopsy". It consists of a bear soft wedge shaped liver biopsy thatmeasures 1.5 x 0.6 x 0.4 cm. The specimen is bisected and submitted entirely in cassetteB. ADOLFO/andrew Technical component performed at [facility] CONTINUED ON NEXT PAGE RUN DATE: 10/31/21 [facility] - LAB PAGE 2 RUN TIME: 1708 Specimen Inquiry RUN USER: INTERFACE SPEC #: [id number] PATIENT: DANIEL ROMERO #[id number] (Continued) --- GROSS DESCRIPTION (Continued) [address] [facility], [place], [address] MICROSCOPIC DESCRIPTION Performed. CLINICAL INFO RMATION Morbid Obesity Signed SIGNATURE ON FILE Nathaniel Ghosh MD 10/31/21 1708 END OF REPORT [id number] 10:58:00 Test Item Value Reference Range Interpretation Comments GLUBED (test code = GLUBED) 210 MG/DL 70-105 H BASIC METABOLIC [id number] 04:33:00 Test Item Value Reference Range Interpretation Comments SODIUM (test code 137 mmol/L 136-145 N Please not e: New = NA) Reference Range Nov 2020 POTASSIUM (test 4.5 mmol/L 3.5-5.1 N code = K) CHLORIDE (test 106 mmol/L 98-107 N Please note: New code = CL) Reference Range Nov 2020 CARBON DIOXIDE 21 mmol/L 20-31 N Please note: New (test code = CO2) Reference Range Nov 2020 GLUCOSE (test code 200 mg/dL 74-106 H Please no te: New = GLU) Reference Range Nov 2020 BLOOD UREA 9 mg/dL 9-23 N Please note: Ne w NITROGEN (test Reference Ran ge Feb code = BUN) 2020 GLOMERULAR >=60 max >60 Units are FILTRATION RATE estimate mL/min mL/min/1. 73m2 The (test code = GFR) estimated glomerular filtration rate is computed usingpatient ra ce, age (>18), sex, and serum creatinin e. If anyof the neede d data elements a re missing the Laboratory meenakshi ot compute an estimation of t he glomerular filtration rate . CREATININE (test 0.90 mg/dL 0.55-1.02 N Please note : New code = CREAT) Reference Rang e Nov 2020 CALCIUM (test code 7.9 mg/dL 8.7-10.4 L Please no te: New = CA) Reference Range Nov 2020 [id number] 04:33:00 Test Item Value Reference Range Interpretation Comments PHOSPHOROUS (test code 2.8 mg/dL 2.4-5.1 N Pleas e note: New = PHOS) Reference Range Nov 2020 [id number] 04:33:00 Test Item Value Reference Range Interpretation Comments MAGNESIUM (test code = 1.9 mg/dL 1.6-2.6 N Pleas e note: New MAG) Reference Range Nov 2020 CBC W/AUTO [id number] 04:10:00 Test Item Value Reference Range Interpretation Comments WHITE BLOOD CELL (test code = 18.9 x10 3/uL 4.8-10.8 H WBC) RED BLOOD CELL (test code = 4.41 x10 6/uL 4.20-5.40 N RBC) HEMOGLOBIN (test code = HGB) 11.9 g/dL 12.0-16.0 L HEMATOCRIT (test code = HCT) 37.5 % 37.0-47.0 N MEAN CELL VOLUME (test code = 85.0 fL 81.0-99.0 N MCV) MEAN CELL HGB (test code = 27.0 pg 27-31 N MCH) MEAN CELL HGB CONCENTRATION 31.7 G/DL 33-36.5 L (test code = MCHC) RED CELL DISTRIBUTION WIDTH 13.6 % 12.9-16.9 N (test code = RDW) PLATELET COUNT (test code = 417 x10 3/uL 150-440 N PLT) MEAN PLATELET VOLUME (test 9.6 fL 8.9-12.4 N code = MPV) NEUTROPHIL % (test code = NT%) 84.6 % 42.2-75.2 H LYMPHOCYTE % (test code = LY%) 10.3 % 20.5-51.1 L MONOCYTE % (test code = MO%) 4.4 % 1.7-9.3 N EOSINOPHIL % (test code = EO%) 0.1 % 0.0-7.0 N BASOPHIL % (test code = BA%) 0.2 % 0-2.5 N NEUTROPHIL # (test code = NT#) 16.02 x10 3/uL 1.80-7.70 H LYMPHOCYTE # (test code = LY#) 1.95 x10 3/uL 1.00-4.80 N MONOCYTE # (test code = MO#) 0.84 x10 3/uL 0.00-0.80 H EOSINOPHIL # (test code = EO#) 0.01 x10 3/uL 0.00-0.45 N BASOPHIL # (test code = BA#) 0.03 x10 3/uL 0.0-0.20 N [id number] 01:36:00 Test Item Value Reference Range Interpretation Comments GLUBED (test code = GLUBED) 177 MG/DL 70-105 H [id number] 18:55:00 Test Item Value Reference Range Interpretation Comments GLUBED (test code = GLUBED) 157 MG/DL 70-105 H [id number] 15:05:00 Test Item Value Reference Range Interpretation Comments GLUBED (test code = GLUBED) 147 MG/DL 70-105 H [id number] 13:31:00 Test Item Value Reference Range Interpretation Comments GLUBED (test code = GLUBED) 200 MG/DL 70-105 H UR HCG [id number] 11:05:00 Test Item Value Reference Range Interpretation Comments UR HCG QUAL (test code = HCGQLU) NEGATIVE NEGATIVE Novel Coronavirus 2018 [id number] 04:39:00 Test Item Value Reference Range Interpretation Comments Novel Coronavirus Negative Negative Positive r esults are 2019 Inhouse (test indicativ e of the presence code = COVNONPUI) ofSARS-CoV -2 RNA, clinical correlation wit h patient historyand othe r diagnostic info rmation is necessary to determinepatien t infection status. Positiv e results do not rule out bacterial infection or co -infection with other viru ses. Negative result s do not preclude SARS-C oV-2 infection andsh ould not be used as the adele e basis for patient managementdecis ions. Negative result s must be combined with otherclinical observations, p atient history, and epidemiological information . Detection of SARS-CoV-2 RNA may be affe cted bysample collec tion methods, storag e conditions, and /or stageof infection. Shannan l RNA mutations, vacc inations, antiviraltherap eutics, antibiotics, chemotherapeuti c orimmunosuppres lauren drugs have not been e valuated for effectson d etection. Results are for the identification of SARS-CoV-2 RNA usingthe [employer] M2000 Sy stem under the FDA Emergen cy UseAuthorizatio n. The testing is perf ormed by candida castaneda in the procedures for the [employer] M2000 molecular diagnostic SARS-CoV-2 assa y in vitro. First test? UnknownEmployed in Healthcare? UnknownSymptomatic as defined by CDC? UnknownHospitalizeddue to COVID? UnknownIn ICU due to COVID? UnknownResident in a congregate care setting? Unknown? UnknownAge at collection: DoraAlvaradoysabel Coronavirus 2019 [id number] 04:38:00 Test Item Value Reference Range Interpretation Comments Novel Coronavirus Negative Negative Positive r esults are 2019 Inhouse (test indicativ e of the presence code = COVNONPUI) ofSARS-CoV -2 RNA, clinical correlation wit h patient historyand othe r diagnostic info rmation is necessary to determinepatien t infection status. Positiv e results do not rule out bacterial infection or co -infection with other viru ses. Negative result s do not preclude SARS-C oV-2 infection andsh ould not be used as the adele e basis for patient managementdecis ions. Negative result s must be combined with otherclinical observations, p atient history, and epidemiological information . Detection of SARS-CoV-2 RNA may be affe cted bysample collec tion methods, storag e conditions, and /or stageof infection. Shannan l RNA mutations, vacc inations, antiviraltherap eutics, antibiotics, chemotherapeuti c orimmunosuppres lauren drugs have not been e valuated for effectson d etection. Results are for the identification of SARS-CoV-2 RNA usingthe [employer] M2000 Sy stem under the FDA Emergen cy UseAuthorizatio n. The testing is perf ormed by candida castaneda in the procedures for the [employer] M2000 molecular diagnostic SARS-CoV-2 assa y in vitro. First test? UnknownEmployed in Healthcare? UnknownSymptomatic as defined by CDC? UnknownHospitalizeddue to COVID? UnknownIn ICU due to COVID? UnknownResident in a congregate care setting? Unknown? UnknownAge at collection: Y PROTHROMBIN [id number] 12:32:00 Test Item Value Reference Range Interpretation Comments PROTHROMBIN TIME 12.3 SECONDS 10.3-12.9 N PATIENT (test code = PTP) INTERNATIONAL 1.08 INR UNIT 0.9-1.11 N The INR is us eful only NORMAL RATIO (test for monit oring code = INR) anticoagulant therapy.It may be unreliable in t he initial phase o f antigoagulation and in unstable patien ts. Indication for Anticoagulation Recommend ed INR 1. Prevention o f venous thomboembolism 2.0-3.0in high -risk patients; treat ment of venousthrombosi s and pulmonary embol ism aftera course o f heparin; preven tion of systemicembolis m in a variety of cond itions, including atria l fibrillation an d prothetic tissu e heart valves, 2. Pros thetic mechanical hear t valves; 2.5-3.5recurren t systemic emboli sm. THROMBOPLASTIN TIME [id number] 12:32:00 Test Item Value Reference Range Interpretation Comments THROMBOPLASTIN TIME 35.6 SECONDS 23.8-34.8 H INTERPRE TATIVE PARTIAL (test code = DATA: erapeutic PTT) range: Unfractionated heparin:55 - 80 seconds Argatroban:1.5 to 3 times the basel ine PTT BASIC METABOLIC [id number] 12:23:00 Test Item Value Reference Range Interpretation Comments SODIUM (test code 139 mmol/L 136-145 N Please not e: New = NA) Reference Range Nov 2020 POTASSIUM (test 4.8 mmol/L 3.5-5.1 N code = K) CHLORIDE (test 104 mmol/L 98-107 N Please note: New code = CL) Reference Range Nov 2020 CARBON DIOXIDE 28 mmol/L 20-31 N Please note: New (test code = CO2) Reference Range Nov 2020 GLUCOSE (test code 165 mg/dL 74-106 H Please no te: New = GLU) Reference Range Nov 2020 BLOOD UREA 15 mg/dL 9-23 N Please note: Ne w NITROGEN (test Reference Ran ge Feb code = BUN) 2020 GLOMERULAR >=60 max >60 Units are FILTRATION RATE estimate mL/min mL/min/1. 73m2 The (test code = GFR) estimated glomerular filtration rate is computed usingpatient ra ce, age (>18), sex, and serum creatinin e. If anyof the neede d data elements a re missing the Laboratory meenakshi ot compute an estimation of t he glomerular filtration rate . CREATININE (test 0.80 mg/dL 0.55-1.02 N Please note : New code = CREAT) Reference Rang e Nov 2020 CALCIUM (test code 9.4 mg/dL 8.7-10.4 N Please no te: New = CA) Reference Range Nov 2020 CBC W/AUTO [id number] 11:57:00 Test Item Value Reference Range Interpretation Comments WHITE BLOOD CELL (test code = 15.6 x10 3/uL 4.8-10.8 H WBC) RED BLOOD CELL (test code = 4.86 x10 6/uL 4.20-5.40 N RBC) HEMOGLOBIN (test code = HGB) 13.1 g/dL 12.0-16.0 N HEMATOCRIT (test code = HCT) 41.0 % 37.0-47.0 N MEAN CELL VOLUME (test code = 84.4 fL 81.0-99.0 N MCV) MEAN CELL HGB (test code = 27.0 pg 27-31 N MCH) MEAN CELL HGB CONCENTRATION 32.0 G/DL 33-36.5 L (test code = MCHC) RED CELL DISTRIBUTION WIDTH 13.6 % 12.9-16.9 N (test code = RDW) PLATELET COUNT (test code = 453 x10 3/uL 150-440 H PLT) MEAN PLATELET VOLUME (test 9.4 fL 8.9-12.4 N code = MPV) NEUTROPHIL % (test code = NT%) 80.2 % 42.2-75.2 H LYMPHOCYTE % (test code = LY%) 13.4 % 20.5-51.1 L MONOCYTE % (test code = MO%) 3.8 % 1.7-9.3 N EOSINOPHIL % (test code = EO%) 1.5 % 0.0-7.0 N BASOPHIL % (test code = BA%) 0.7 % 0-2.5 N NEUTROPHIL # (test code = NT#) 12.49 x10 3/uL 1.80-7.70 H LYMPHOCYTE # (test code = LY#) 2.09 x10 3/uL 1.00-4.80 N MONOCYTE # (test code = MO#) 0.59 x10 3/uL 0.00-0.80 N EOSINOPHIL # (test code = EO#) 0.24 x10 3/uL 0.00-0.45 N BASOPHIL # (test code = BA#) 0.11 x10 3/uL 0.0-0.20 N [id number] 11:21:00 Test Item Value Reference Range Interpretation Comments SURGICAL (test code = SR) RUN DATE: 10/05/21 [facility] - LAB PAGE 1 RUN TIME: 1122 Specimen Inquiry RUN USER: INTERFACE MICHELE ENT: DANIEL ROMERO LOC: EUSEBIO U #: [id number] AGE/SX: 26/F ROOM: RE09/30/21[facility] DR: Ángel Nair MD : 93 BED: DIS: STATUS: DEP SDC TLOC: SPEC #: [id number] RECD: 09/30/21 STATUS: DENISE GARZA #: [id number] LEON: 09/30/[address] [facility] [address]: Ángel Nair MD ENTERED: 09/30/21 SP TYPE: SURGICAL OTHR DR: No Primary or Family Physician Self Referred Shaista Arauzh DOORDERED: 99130, 99606, ANATOMIC SPEC HISTOLOGY: TISSUE ID BLK PCS LULY LEV / PROCEDURE DISPOSITION ____ ___ ___ ___ ___ ANTRUM A 1 3 TISSUES: A. ANTRUM - Antrum Bx FINAL DIAGNOSIS STOMACH, ANTRUM, ENDOSCOPIC BIOPSY: No significant pathologic changes. Negative immunostain for H. pylori. GROSS DESCRIPTION The specimen is received in a container with formalin, identified with patient's name and"antrum biopsy". It consists of two fragments of mucosal tissue measuring 0.3 cm ingreatest dimension, each. They are entirely submitted in cassette A. LANDON/ks [facility], [facility], [address] MICROSCOPIC DESCRIPTION Performed. CLINICAL INFORMATION GERD Signed SIGNATURE ON FILE Nathaniel Ghosh MD 10/05/21 1121 END OF REPORT [id number] 14:39:00 Test Item Value Reference Range Interpretation Comments GLUBED (test code = GLUBED) 108 MG/DL 70-105 H Novel Coronavirus 04:37:00 Test Item Value Reference Range Interpretation Comments Novel Coronavirus Negative Negative Positive r esults are 2019 Inhouse (test indicativ e of the presence code = [id number]) ofSARS-CoV -2 RNA, clinical correlation wit h patient historyand othe r diagnostic info rmation is necessary to determinepatien t infection status. Positiv e results do not rule out bacterial infection or co -infection with other viru ses. Negative result s do not preclude SARS-C oV-2 infection andsh ould not be used as the adele e basis for patient managementdecis ions. Negative result s must be combined with otherclinical observations, p atient history, and epidemiological information . Detection of SARS-CoV-2 RNA may be affe cted bysample collec tion methods, storag e conditions, and /or stageof infection. Shannan l RNA mutations, vacc inations, antiviraltherap eutics, antibiotics, chemotherapeuti c orimmunosuppres lauren drugs have not been e valuated for effectson d etection. Results are for the identification of SARS-CoV-2 RNA usingreal-time (RT) polymerase jaret n reaction (PCR) technolog yfor the qualitative det ection of nucleic acids f rom [id number] v irus and diagnosis of SA RS-CoV-2 virusinfection. It is an Emergency Use Authorization ( EUA) testauthorized by the U.S. FDA. First test? UnknownEmployed in Healthcare? UnknownSymptomatic as defined by CDC? UnknownHospitalizeddue to COVID? UnknownIn ICU due to COVID? UnknownResident in a congregate care setting? Unknown? UnknownAge at collection: Sreedhar Coronavirus 04:37:00 Test Item Value Reference Range Interpretation Comments Novel Coronavirus Negative Negative Positive r esults are 2019 Inhouse (test indicativ e of the presence code = [id number]) ofSARS-CoV -2 RNA, clinical correlation wit h patient historyand othe r diagnostic info rmation is necessary to determinepatien t infection status. Positiv e results do not rule out bacterial infection or co -infection with other viru ses. Negative result s do not preclude SARS-C oV-2 infection andsh ould not be used as the adele e basis for patient managementdecis ions. Negative result s must be combined with otherclinical observations, p atient history, and epidemiological information . Detection of SARS-CoV-2 RNA may be affe cted bysample collec tion methods, storag e conditions, and /or stageof infection. Shannan l RNA mutations, vacc inations, antiviraltherap eutics, antibiotics, chemotherapeuti c orimmunosuppres lauren drugs have not been e valuated for effectson d etection. Results are for the identification of SARS-CoV-2 RNA usingreal-time (RT) polymerase jaret n reaction (PCR) technolog yfor the qualitative det ection of nucleic acids f rom [id number] v irus and diagnosis of SA RS-CoV-2 virusinfection. It is an Emergency Use Authorization ( EUA) testauthorized by the U.S. FDA. First test? UnknownEmployed in Healthcare? UnknownSymptomatic as defined by CDC? UnknownHospitalizeddue to COVID? UnknownIn ICU due to COVID? UnknownResident in a congregate care setting? Unknown? UnknownAge at collection: LUDMILA HCG [id number] 13:33:00 Test Item Value Reference Range Interpretation Comments UR HCG QUAL (test code = HCGQLU) NEGATIVE NEGATIVE MRI LUMBAR [id number] 11:23:44 [facility] : 1995 Sex: FCLINICAL INDICATION: M47.816, Spondylosis without myelopathy or radiculopathy, lumbar region MODALITY: [employer] 3T MRI TECHNIQUE: Multiplanar multi sequence MRI examination of the lumbar spine was performed.IMPRESSION:1. There are five lumbar vertebra with mildly exaggerated lumbar lordosis.2. No fractures or destructive lesions.3. Mild degenerative changes of the L4-5 disc with 2 mm central protrusion. Canal and foramen are patent.4. There is multilevel very mild - mild facet arthrosis fromL2-3 - L5-S1.FINDINGS:COMPARISON: noneGeneral observations: Five non-rib bearing lumbar vertebra are noted for purposes of this report. There is mildly exaggerated lumbar lordosis.Vertebral body heights are well maintained without fracture or destructive osseous lesion. There are no prevertebral or paraspinous soft tissue abnormalities.There is mild degeneration of the L4-5 disc with mild loss of height in nuclear desiccation. Other lumbar disc heights are well maintained.Conus medullaris is normal, terminating at T12- L1. Cauda equina nerve roots are normal.FINDINGS AT SPECIFIC LEVELS:L5-S1: Disc height and hydration are well maintained. Central canal and foramen are patent without nerve root impingement. Facet joints are very mildly degenerated.L4-L5: Disc height is mildly reduced. There is a 2 mm central disc protrusion which abuts ventral thecal sac. Central canal and foramen are patent without focal nerve root impingement. Facet joints are mildly degenerated.L3-L4: Disc height and hydration are well maintained. Central canal and foramen are patent. No nerve root impingement. Facet jointsare mildly degenerated.L2-L3: Disc is well- maintained. Central canal and foramen are patent without nerve root impingement. Facet joints are very mildly degenerated.L1-L2: Disc is well-maintained. Central canal and foramen are patent. Facet joints are within normal limits.CR - XRAY SPINE, LUMBOSACRAL: COMPLETE W/BENDING, MIN 6 [id number] 10:52:08 [facility] : 1995 Sex: FCLINICAL INDICATION: M47.816, Spondylosis without myelopathy or radiculopathy, lumbar regionFINDINGS:COMPARISON: No prior study.Five lumbar vertebrae are present. There is a normal lumbar lordosis and alignment which is stable in flexion and extension. There is slight rotoscoliosis, convexity to the left. Disc heights are well maintained.Facet joints appear unremarkable.Vertebral body heights are well maintained. There are no fractures or dislocations . No destructive changes are seen.A 1.1 cm calcification in the left flank most likely is an intrarenal stone. A 1.6 cm stone in the right upperquadrant is suspicious for cholelithiasis. Sonography is recommended as follow-up.IMPRESSION:1. Slight lumbar rotoscoliosis without evidence of dynamic instability.2. Probable, 1.1 cm left intrarenalcalculus and 1.6 cm calcified gallstone. 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 This exam was performed according to our departmental dose optimization program which includes automated exposure control, adjustment of the mA and/or kV according to patient's size and/or use of iterative reconstructive technique. Comparison Film: July 16, 2020 and September 09, 2019 Discussion: No supraclavicular, axillary, mediastinal or hilar l ymphadenopathy. Heart and pericardium are unremarkable. Status post right lower lobectomy. There is no new mass or consolidation. No bronchiectasis or bronchial wall thickening. Trace right pleural fluid. Partially imaged upper abdomen is unremarkable. Bony structures demonstrate no suspicious findings. Impression: Status post right lower lobectomy. No recurrent mass or metastatic disease is identified in the chest. Signed: Krista Conn Verified Date/Time: 02/21/2021 14:21:06 Reading Location:[address] Ortho Consult Reading Room -[id number] 12:40:00 Test Item Value Reference Range Interpretation Comments POC-CREATININE 0.6 mg/dL 0.6-1.3 : TESTED AT [facility] ([facility]) (test [facility] code = 1859) A, [facility] 7 0649: Cryptologic Technician Operator/Analyst/Techni stevo ID = [id number] for Shruti Corbin POC-EGFR 120 mL/min/1.73M2 ([facility]) (test code = 1860) CT, CHEST, WITH IV [id number] 14:41:00FINAL REPORT CT of the chest, with contrast Clinical History: carcinoid tumor of right lung Technique: CT of the chest is performed with intravenous contrast administration. This exam was performed according to our departmental dose optimization program which includes automatedexposure control, adjustment of the mA and/or kV according to patient's size and/or use of iterativereconstructive technique. Comparison Film: September 09, 2019 Discussion: There is no supraclavicular, axillary, mediastinal or hilar lymphadenopathy. Heart and pericardium are unremarkable. Status post right lower lobectomy. There is trace right-sided pleural effusion. No new mass or consolidation. No bronchiectasis, or bronchial wall thickening. Partially imaged upper abdomen is unremarkable. No suspicious bony lesion identified. Impression: Status post right lower lobectomy. Trace right pleural effusion. No recurrent mass or lymphadenopathy identified in the chest. Signed: Krista Conneport Verified Date/Time: 07/16/2020 14:41:04 Reading Location: [facility] C013X Ortho Consult Reading Room TISSUE EXAM 2019-11-14 14:42:00Surgical Pathology Report Case: [id number] Authorizing Provider: Ludwig Whitney MD Collected: 11/05/2019 1003 Ordering Location: [facility] Received: 11/05/2019 1223 PERIOPERATIVE SERVICES Pathologist: Luis Koenig MD Specimens: A) - Lymph Node, Subcarinal, Station 7, LYMPH NODE STATION 7 B) -Lymph Node, Subcarinal, Station 7, LYMPH NODES STATION 7 PACKAGE WITH AT LEAST 3 NODES. 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 LYMPH NODE, SUBCARINAL, STATION 7, RESECTION: - ONE LYMPH NODE, NEGATIVE FOR METASTATIC CARCINOMA (0/1)B. LYMPH NODE, SUBCARINAL, STATION 7, ADDITIONAL, RESECTION: - THREE LYMPH NODES, NEGATIVE FOR METASTATIC CARCINOMA (0/3)C. LYMPHNODE, STATION 2R AND 4R, RESECTION: - SIX LYMPH NODES, NEGATIVE FOR METASTATIC CARCINOMA (0/6)D.LYMPH NODE, STATION 11R, RESECTION: - ONE LYMPH NODE, NEGATIVE FOR METASTATIC CARCINOMA (0/1)E. LYMPH NODE, STATION 11R, #2, RESECTION: - ONE LYMPH NODE, NEGATIVE FOR METASTATIC CARCINOMA (0/1)F. LYMPH NODE, STATION 11R, #3, RESECTION: - ONE LYMPH NODE, NEGATIVE FOR METASTATIC CARCINOMA (0/1)G. 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 An immunostain for CAM5.2was performed on the biggest lymph node and it is predominantly negative. The findings are supportive of the above diagnosis. G. The tumor shows predominantly monotonous proliferation of epithelial cells with neuroendocrine features. Focal necrosis are seen, associated with hemosiderin and reactive changes, compatible with prior biopsy site. Additionally, a few glandular structure with mucin are seenin the lesion, likely representing entrapped benign gland, which are distended due to obstruction ofthe airway. By immunohistochemistry, the tumor cells are positive for synaptophysin and chromogranin, while TTF1 is weakly and patchy positive. P40 is essentially negative and CDX2 shows very rare positive cells. Ki67 labeling index is less than 2%. No significantly increased mitotic figures are seen.Taken together, the findings are supportive of the above diagnosis. Additionally, due to the retraction of the tumor nests, a CD31 stain was performed to evaluate vascular invasion. Focally, scattered detached tumor cells can be seen in vessels, which is favored to be carryover. No definitive lymph/vascular invasion is seen. Intradepartmental consultation: Dr. 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 Spread Through Air Spaces (LAURA): Not identified : Tumor Size: Greatest dimension in Centimeters (cm): 4.0 Centimeters (cm) Additional Dimension in Centimeters (cm): 4 Centimeters (cm) Additional Dimension in Centimeters (cm): 3.2 Centimeters (cm) Tumor Focality: Single tumor Tumor Extent: Visceral Pleura Invasion: Not identified Direct Invasion of Adjacent St ructures: No adjacent structures present Accessory Findings: Treatment Effect: No knownpresurgical therapy Lymphovascular Invasion: Not identified MARGINS Margins: All margins are uninvolved by tumor Margins Examined: Bronchial Margins Examined: Vascular Margins Examined: Parenchymal Distance of Invasive Carcinoma from Closest Margin in Centimeters (cm):At least: 1 Centimeters (cm) Closest Margin: Parenchymal LYMPH NODES Number of Lymph Nodes Involved: 0 Number of Lymph Nodes Examined: 15 Eran Stations Examined: 2R: Upper paratracheal Eran Stations Examined: 4R: Lower paratracheal Eran Stations Examined: 10R: Hilar Eran Stations Examined: 11R: Interlobar Eran Stations Examined: 7: Subcarinal PATHOLOGIC STAGE CLASSIFICATION (pTNM, AJCC 8th Edition) Primary Tumor (pT): pT2a Regional Lymph Nodes (pN): pN0 06466 x 4, 34123 x 2, 04995, 14034 x 2, 00999 x 5, 55955, 44504 x 1, 38529 x 1Pre and postop diagnosis: primary typical carcinoid tumor of right lungRight lower lobe typical carcinoid tumorA. Lymph node, subcarinal, station 7; B. Lymph node, subcarinal, station 7, station 7 package with at least 3 nodes; C. lymph node, upper paratracheal, right, station 2R, lymph nodes, station 2 and 4 packaged; D. lymph node, interlobar,right, station 11R; E. lymph node, interlobar, right, station 11R #2; F. Lymph node, interlobar, right, station 11R #3Specimens A-F are received fresh, labeled with the patient's name and accession number.Part A labeled "lymph node, station 7" is a 0.2 cm pink soft tissuefragment, submitted in toto in A1. Part B labeled "lymph node, station 7 package with at least 3 nodes" are three anthracotic lymph nodes measuring 2.1 cm, 0.8 cm and 0.2 cm. The largest lymph node is bisected and submitted in B1, and the two other lymph nodes are submitted in B2. Part C labeled "lymph node, station 2 and 4 packaged" is a 2.5 x 1.2 x 0.4 cm irregular portion of yellow-bear adipose tissue. The specimen is sectioned to reveal five possible anthracotic lymph nodes ranging 0.2-0.9 cm. The specimen is entirely submitted. Section code: C1, four possible intact lymph nodes; C2, one lymph node, bisected. Part D labeled "lymph node station 11R" is a 0.3 cm anthracotic soft tissue fragment submitted in toto in D1. Part E labeled "lymph node station 11R #2" is a 0.9 cm anthracotic lymph node submitted in toto in E1. Part F labeled "lymph node station 11R #3" is a 1.0 cm anthracotic lymph node, submitted in toto in F1. CG/plPart G received fresh for intraoperative consultation diagnosis labeled "right lower lobe bronchial lung margin" consists of 120.6 gm lobectomy measuring 9 x 8 x 4.5cm. The external surface of the lung is bear-purple and smooth. A 4 x 4 x 3.2 cm tumor is palpated. A3 cm stapled bronchial margin (green) is located at 1.2 cm from the tumor.The specimen is serially sectioned to show a 4 x 4 x 3.2 cm well- circumscribed tumor with bear-pink lobulated cut surface with no identified hemorrhage or necrosis. The uninvolved lung parenchyma is bear-purple and spongy with no other identified lesions. There is 1.3 x 1.3 x 1.2 cm mucous plug identified.A 9 mm stapled vascular margin (red) is located at 2.6 cm from the tumor. Three stapled parenchymal margins are identified asfollows: Parenchymal margin #1 (orange) measures 1 cm and is located at 1 cm from the tumor, parenchy mal margin #2 (blue) measures 3.5 cm and is located at 2 cm from the tumor, and parenchymal margin #3 (yellow) measures 2 cm and is located at 2 cm from the tumor. The parenchymal margin is submitted en face in cassette G1FS, closest parenchymal margin (margin #1, orange) is submitted in cassettes G2FS. Art Supervisor section of the tumor is submitted in cassette G3FS.Ink code:Bronchial margin-green#1 parenchymal margin-orange#2 parenchymal margin- blue#3 parenchymal margin-yellowVascular margin-redPleura surrounding the tumor- blackSection code:G1FS, bronchial margin, en face G2FS, bronchial margin #1, en opsvH2YM, human resources representative section of the tumorG4, parenchymal margin #2G5, parenchymal margin #3G6, vascular margin with possible hilar lymph node G7, tumor to closest pleural surface G8-G10, tumor to uninvolved lung parenchyma and adjacent mucous plugG11, tcpdnC07, tumor surrounding ortsmwafA21,mucous plug with surrounding lung kbvetxfrzeU54, uninvolved lung parenchyma SM/ewLUNG, LOWER LOBE, LOBECTOMY: - BRONCHIAL AND CLOSEST PARENCHYMAL MARGIN: - NEGATIVE FOR DEFINITIVE TUMOR - SINGLEFOCUS OF ATYPICAL CELLS ADJACENT TO BRONCHIAL MARGIN, FAVOR CRUSHED LYMPHOCYTE (REFER TO PERMANENT)This was reported to Dr. Whitney in OR-CV-9 on November 05, 2019, at 12:45 p.m. Performed.The interpre tation of this case included the use of immunohistochemistry or special stains.Please see the immunohistochemistry results in the COMMENT section. Control Slides Examined: In-house known positive controls were evaluated along with the test tissue. These control slides run alongside of the patients sample show appropriate staining. Internal positive and negative controls when available are evaluatedImmunohistochemistry technical testing was performed at [facility], Pathology Laboratory where it was developed and its performance characteristics were determined. It has not been cleared or approved by the U.S. Food and Drug Administration. The FDA has determined that such clearance or approval is not necessary. The test is used for clinical purposes. It should not be regardedas investigational or for research. This laboratory is certified under the Clinical Laboratory Improvement Amendments of 1988 (CLIA-88) as qualified to perform high complexity clinical laboratory testing.RAD, CHEST, 1 VIEW, NON [id number] 09:36:00Reason for exam:->s/p RLLobectomyIs the patient ?->NoShould this be performed at the [facility]?->YesFINAL REPORT Chest, one view. HISTORY: s/p RLLobectomy COMPARISON: Radiograph from yesterday IMPRESSION: The trace right pleural effusion with right basilar atelectasis unchanged. There is also likely a trace left pleural effusion which is unchanged. Mild left basilar subsegmental atelectasis. No pneumothorax. The cardiac silhouette is normal in size. No acute bony normality.Leftward convex curvature of the upper thoracic spine. Signed: Meera Gonzalez MDReport Verified Date/Time: 11/08/2019 09:36:31 Reading Location: [facility] C013Y CT Body Reading Room POCT-GLUCOSE [id number] 08:02:00 Test Item Value Reference Range Interpretation Comments POC-GLUCOSE METER 95 mg/dL 70-110 : TESTED A T [facility] 6720 (BEAKER) (test code = [facility], 1538) [address]752: Cryptologic Technician Operator/Analyst/Techni stevo ID = [id number] for LOCO FERNADNEZLA POCT-GLUCOSE [id number] 06:55:00 Test Item Value Reference Range Interpretation Comments POC-GLUCOSE METER 111 mg/dL 70-110 H : TESTED A T [facility] 6720 (BEAKER) (test code = [facility], 1538) 57960: Cryptologic Technician Operator/Analyst/Techni stevo ID = [id number] for RA GLAND, MYNOR POCT-GLUCOSE [id number] 06:21:00 Test Item Value Reference Range Interpretation Comments POC-GLUCOSE METER 66 mg/dL 70-110 L : TESTED A T [facility] 6720 (BEAKER) (test code = [facility], 1538) 30686: Cryptologic Technician Operator/Analyst/Techni stevo ID = [id number] for RAGL AND, MYNOR [id number] 05:30:00 Test Item Value Reference Range Interpretation Comments MAGNESIUM (BEAKER) (test code = 2.0 mg/dL 1.6-2.6 627) Cryptologic Technician Operator/Analyst ID - STORMY MBASIC METABOLIC [id number] 05:30:00 Test Item Value Reference Range Interpretation Comments SODIUM (BEAKER) 136 meq/L 136-145 (test code = 381) POTASSIUM (BEAKER) 4.0 meq/L 3.5-5.1 (test code = 379) CHLORIDE (BEAKER) 107 meq/L 98-107 (test code = 382) CO2 (BEAKER) (test 22 meq/L 22-29 code = 355) BLOOD UREA NITROGEN 8 mg/dL 7-21 (BEAKER) (test code = 354) CREATININE (BEAKER) 0.64 mg/dL 0.57-1.25 (test code = 358) GLUCOSE RANDOM 63 mg/dL 70-105 L (BEAKER) (test code = 652) CALCIUM (BEAKER) 8.4 mg/dL 8.4-10.2 (test code = 697) EGFR (BEAKER) (test 112 mL/min/1.73 ESTIM ATED GFR IS code = 1092) sq m NOT ACCURATE CREATININE CLEARANCE IN PREDICTING GLOMERULAR FILTRATION RATE . ESTIMATED GFR I S NOT APPLICABLE FOR DIALYSIS PATIEN TS. Cryptologic Technician Operator/Analyst ID - STORMY MCBC W/PLT COUNT & AUTO [id number] 05:09:00 Test Item Value Reference Range Interpretation Comments WHITE BLOOD CELL COUNT (BEAKER) 9.8 K/ L 3.5-10.5 (test code = 775) RED BLOOD CELL COUNT (BEAKER) 3.78 M/ L 3.93-5.22 L (test code = 761) HEMOGLOBIN (BEAKER) (test code = 10.4 GM/DL 11.2-15.7 L 410) HEMATOCRIT (BEAKER) (test code = 33.6 % 34.1-44.9 L 411) MEAN CORPUSCULAR VOLUME (BEAKER) 88.9 fL 79.4-94.8 (test code = 753) MEAN CORPUSCULAR HEMOGLOBIN 27.5 pg 25.6-32.2 (BEAKER) (test code = 751) MEAN CORPUSCULAR HEMOGLOBIN CONC 31.0 GM/DL 32.2-35.5 L (BEAKER) (test code = 752) RED CELL DISTRIBUTION WIDTH 12.6 % 11.7-14.4 (BEAKER) (test code = 412) PLATELET COUNT (BEAKER) (test 337 K/CU MM 150-450 code = 756) MEAN PLATELET VOLUME (BEAKER) 8.9 fL 9.4-12.3 L (test code = 754) NUCLEATED RED BLOOD CELLS 0 /100 WBC 0-0 (BEAKER) (test code = 413) NEUTROPHILS RELATIVE PERCENT 69 % (BEAKER) (test code = 429) LYMPHOCYTES RELATIVE PERCENT 20 % (BEAKER) (test code = 430) MONOCYTES RELATIVE PERCENT 6 % (BEAKER) (test code = 431) EOSINOPHILS RELATIVE PERCENT 4 % (BEAKER) (test code = 432) BASOPHILS RELATIVE PERCENT 1 % (BEAKER) (test code = 437) NEUTROPHILS ABSOLUTE COUNT 6.78 K/ L 1.56-6.13 H (BEAKER) (test code = 670) LYMPHOCYTES ABSOLUTE COUNT 1.98 K/ L 1.18-3.74 (BEAKER) (test code = 414) MONOCYTES ABSOLUTE COUNT (BEAKER) 0.56 K/ L 0.24-0.36 H (test code = 415) EOSINOPHILS ABSOLUTE COUNT 0.35 K/ L 0.04-0.36 (BEAKER) (test code = 416) BASOPHILS ABSOLUTE COUNT (BEAKER) 0.09 K/ L 0.01-0.08 H (test code = 417) IMMATURE GRANULOCYTES-RELATIVE 1 % 0-1 PERCENT (BEAKER) (test code = 2801) POCT-GLUCOSE [id number] 02:36:00 Test Item Value Reference Range Interpretation Comments POC-GLUCOSE METER 100 mg/dL 70-110 : TESTED A T [facility] 6720 (BEAKER) (test code = [facility], 153) 59666: Cryptologic Technician Operator/Analyst/Techni stevo ID = [id number] for RA GLAND, MYNOR POCT-GLUCOSE [id number] 23:49:00 Test Item Value Reference Range Interpretation Comments POC-GLUCOSE METER 241 mg/dL 70-110 H : TESTED A T [facility] 6720 (BEAKER) (test code = [facility] DoYouRemember [facility], 153) 80736: Cryptologic Technician Operator/Analyst/Techni stevo ID = [id number] for RA GLAND, MYNOR POCT-GLUCOSE [id number] 17:55:00 Test Item Value Reference Range Interpretation Comments POC-GLUCOSE METER 265 mg/dL 70-110 H : TESTED A T [facility] 6720 (BEAKER) (test code = [facility], 153) 30342: Cryptologic Technician Operator/Analyst/Techni stevo ID = [id number] for CHAMBERS LL, ALICE RAD, CHEST, 1 VIEW, NON [id number] 13:35:00Reason for exam:->ct removalShould this be performed at the bedside?->YesFINAL REPORT TECHNIQUE: Frontal chest radiograph dated 11/07/2019. CLINICAL HI STORY: Chest tube removal COMPARISON STUDY: Chest radiograph performed earlier the same day Impression:Right-sided chest tube has been removed.. Stable, trace right pleural effusion and left lung base atelectasis. No pneumothorax. Cardiomediastinal silhouette is stable in size. No pulmonary edema. No fracture. Curvature of the thoracic spine is visualized. Signed: Diane Hollins MDReport VerifiedDate/Time: 11/07/2019 13:35:50 Reading Location: [facility] Reading Room POCT-GLUCOSE [id number] 13:05:00 Test Item Value Reference Range Interpretation Comments POC-GLUCOSE METER 202 mg/dL 70-110 H : TESTED A [facility] ([place] - 2) (test code = [facility], 1538) 67395: Cryptologic Technician Operator/Analyst/Techni stevo ID = [id number] for CASPERLOLLY SHAHIDLEY RAD, CHEST, 1 VIEW, NON [id number] 10:51:00Reason for exam:->post ct removalShould this be performed at the bedside?->YesFINAL REPORT RAD, CHEST, 1 VIEW, NON DEPT INDICATION: post ct removal COMPARISON: Prior day's exam FINDINGS: Portable frontal view of the chest. IMPRESSION: Support Lines: Right-sided chest tube Lungs and pleura: Unchanged airspace and pleural opacities. No pneumothorax.Heartand mediastinum: Stable contours. Stable surgical changes.Additional findings: None. Signed: Carlene Shirley MDReport Verified Date/Time: 11/07/2019 10:51:23 Reading Location: [facility] Radiology Reading Room POCT-GLUCOSE [id number] 09:13:00 Test Item Value Reference Range Interpretation Comments POC-GLUCOSE METER 154 mg/dL 70-110 H : TESTED A T [employer] [facility] ([place] [place] - 2) (test code = [facility], 1538) 74977: Cryptologic Technician Operator/Analyst/Techni stevo ID = [id number] for DE JALYN ANDERSON RAD, CHEST, 1 VIEW, NON [id number] 08:06:00Reason for exam:->s/p RLLobectomyIs the patient ?->NoShould this be performed at the [facility]?->YesFINAL REPORT RAD, CHEST, 1 VIEW, NON DEPT INDICATION: s/p RLLobectomy COMPARISON: Prior day's exam FINDINGS: Portable frontal view of the chest. IMPRESSION: Support Lines: Right-sided chest tube Lungs and pleura: Mild bibasilar subsegmental atelectasis. No pneumothorax.Heart and mediastinum: Stable contours. Additional findings: Postsurgical changes status post lobectomy. Signed: Carlene Shirley Verified Date/Time: 11/07/2019 08:06:43 Reading Location: [facility] Radiology Reading Room [id number] 07:11:00 Test Item Value Reference Range Interpretation Comments MAGNESIUM (BEAKER) (test code = 2.2 mg/dL 1.6-2.6 627) Cryptologic Technician Operator/Analyst ID - STORMY MBASIC METABOLIC [id number] 07:11:00 Test Item Value Reference Range Interpretation Comments SODIUM (BEAKER) 130 meq/L 136-145 L (test code = 381) POTASSIUM (BEAKER) 4.5 meq/L 3.5-5.1 (test code = 379) CHLORIDE (BEAKER) 101 meq/L 98-107 (test code = 382) CO2 (BEAKER) (test 20 meq/L 22-29 L code = 355) BLOOD UREA NITROGEN 4 mg/dL 7-21 L (BEAKER) (test code = 354) CREATININE (BEAKER) 0.68 mg/dL 0.57-1.25 (test code = 358) GLUCOSE RANDOM 236 mg/dL 70-105 H (BEAKER) (test code = 652) CALCIUM (BEAKER) 8.3 mg/dL 8.4-10.2 L (test code = 697) EGFR (BEAKER) (test 105 mL/min/1.73 ESTIM ATED GFR IS code = 1092) sq m NOT ACCURATE CREATININE CLEARANCE IN PREDICTING GLOMERULAR FILTRATION RATE . ESTIMATED GFR I S NOT APPLICABLE FOR DIALYSIS PATIEN TS. Cryptologic Technician Operator/Analyst ID - STORMY MCBC W/PLT COUNT & AUTO [id number] 06:15:00 Test Item Value Reference Range Interpretation Comments WHITE BLOOD CELL COUNT (BEAKER) 10.6 K/ L 3.5-10.5 H (test code = 775) RED BLOOD CELL COUNT (BEAKER) 3.99 M/ L 3.93-5.22 (test code = 761) HEMOGLOBIN (BEAKER) (test code = 11.2 GM/DL 11.2-15.7 410) HEMATOCRIT (BEAKER) (test code = 36.2 % 34.1-44.9 411) MEAN CORPUSCULAR VOLUME (BEAKER) 90.7 fL 79.4-94.8 (test code = 753) MEAN CORPUSCULAR HEMOGLOBIN 28.1 pg 25.6-32.2 (BEAKER) (test code = 751) MEAN CORPUSCULAR HEMOGLOBIN CONC 30.9 GM/DL 32.2-35.5 L (BEAKER) (test code = 752) RED CELL DISTRIBUTION WIDTH 12.3 % 11.7-14.4 (BEAKER) (test code = 412) PLATELET COUNT (BEAKER) (test 311 K/CU MM 150-450 code = 756) MEAN PLATELET VOLUME (BEAKER) 9.2 fL 9.4-12.3 L (test code = 754) NUCLEATED RED BLOOD CELLS 0 /100 WBC 0-0 (BEAKER) (test code = 413) NEUTROPHILS RELATIVE PERCENT 73 % (BEAKER) (test code = 429) LYMPHOCYTES RELATIVE PERCENT 18 % (BEAKER) (test code = 430) MONOCYTES RELATIVE PERCENT 6 % (BEAKER) (test code = 431) EOSINOPHILS RELATIVE PERCENT 1 % (BEAKER) (test code = 432) BASOPHILS RELATIVE PERCENT 1 % (BEAKER) (test code = 437) NEUTROPHILS ABSOLUTE COUNT 7.74 K/ L 1.56-6.13 H (BEAKER) (test code = 670) LYMPHOCYTES ABSOLUTE COUNT 1.92 K/ L 1.18-3.74 (BEAKER) (test code = 414) MONOCYTES ABSOLUTE COUNT (BEAKER) 0.58 K/ L 0.24-0.36 H (test code = 415) EOSINOPHILS ABSOLUTE COUNT 0.13 K/ L 0.04-0.36 (BEAKER) (test code = 416) BASOPHILS ABSOLUTE COUNT (BEAKER) 0.09 K/ L 0.01-0.08 H (test code = 417) IMMATURE GRANULOCYTES-RELATIVE 1 % 0-1 PERCENT (BEAKER) (test code = 2801) LACTIC ACID, [id number] 06:13:00 Test Item Value Reference Range Interpretation Comments LACTATE BLOOD VENOUS 1.6 mmol/L 0.5-2.2 Specime n slightly (2) (BEAKER) (test hemolyzed code = 2872) Cryptologic Technician Operator/Analyst ID - STORMY MPOCT-GLUCOSE [id number] 06:07:00 Test Item Value Reference Range Interpretation Comments POC-GLUCOSE METER 224 mg/dL 70-110 H : TESTED A T [facility] 6720 (BEAKER) (test code = [facility], 1538) 18305: Cryptologic Technician Operator/Analyst/Techni stevo ID = [id number] for MS IBI, MNCEDISI POCT-GLUCOSE [id number] 02:17:00 Test Item Value Reference Range Interpretation Comments POC-GLUCOSE METER 190 mg/dL 70-110 H : TESTED A T [facility] 6720 (BEAKER) (test code = [facility], 1538) 62016: Cryptologic Technician Operator/Analyst/Techni stevo ID = [id number] for MS IBI, MNCEDISI POCT-GLUCOSE [id number] 22:06:00 Test Item Value Reference Range Interpretation Comments POC-GLUCOSE METER 169 mg/dL 70-110 H : TESTED A T [facility] 6720 (BEAKER) (test code = [facility], 1538) 83351: Cryptologic Technician Operator/Analyst/Techni stevo ID = [id number] for MS IBI, MNCEDISI POCT-GLUCOSE [id number] 18:46:00 Test Item Value Reference Range Interpretation Comments POC-GLUCOSE METER 194 mg/dL 70-110 H : TESTED A T [facility] 6720 (BEAKER) (test code = [facility], 1538) 66608: Cryptologic Technician Operator/Analyst/Techni stevo ID = [id number] for TERRY SOLIS, SERGEI RAD, CHEST, 1 VIEW, NON [id number] 17:14:00Reason for exam:->s/p RLLobectomyIs the patient ?->NoShould this be performed at the [facility]?->YesFINAL REPORT Chest, portable AP view History: Status post right lower lobe lobectomy Comparison: 11/05/2019 IMPRESSION: The heart is stable in size and configuration. Right chesttube is in place. There is no pneumothorax. There is stable elevation of the right hemidiaphragm. The left lung is grossly clear. No acute osseous abnormalities. Signed: Fransisco Eisenberg MDReport Verified Date/Time: 11/06/2019 17:14:39 Reading Location: [address] Radiology Reading Room POCT-GLUCOSE [id number] 12:14:00 Test Item Value Reference Range Interpretation Comments POC-GLUCOSE METER 199 mg/dL 70-110 H : TEST[facility] T [facility] 67[facility] ([facility] (test code = [facility] [place], 1538) [id number]: Cryptologic Technician Operator/Analyst/Techni stevo ID = [id number] for SERGEI RAMIREZ BASIC METABOLIC [id number] 05:55:00 Test Item Value Reference Range Interpretation Comments SODIUM (BEAKER) 132 meq/L 136-145 L (test code = 381) POTASSIUM (BEAKER) 3.9 meq/L 3.5-5.1 Specimen slightly (test code = 379) hemolyzed CHLORIDE (BEAKER) 105 meq/L 98-107 (test code = 382) CO2 (BEAKER) (test 19 meq/L 22-29 L code = 355) BLOOD UREA NITROGEN 5 mg/dL 7-21 L (BEAKER) (test code = 354) CREATININE (BEAKER) 0.65 mg/dL 0.57-1.25 Specimen slightly (test code = 358) hemolyzed GLUCOSE RANDOM 172 mg/dL 70-105 H (BEAKER) (test code = 652) CALCIUM (BEAKER) 7.6 mg/dL 8.4-10.2 L (test code = 697) EGFR (BEAKER) (test 110 mL/min/1.73 ESTIM ATED GFR IS code = 1092) sq m NOT ACCURATE CREATININE CLEARANCE IN PREDICTING GLOMERULAR FILTRATION RATE . ESTIMATED GFR I S NOT APPLICABLE FOR DIALYSIS PATIEN TS. [id number] 05:24:00 Test Item Value Reference Range Interpretation Comments MAGNESIUM (BEAKER) 1.6 mg/dL 1.6-2.6 Specimen slightly (test code = 627) hemolyzed CBC W/PLT COUNT & AUTO [id number] 04:49:00 Test Item Value Reference Range Interpretation Comments WHITE BLOOD CELL COUNT (BEAKER) 8.1 K/ L 3.5-10.5 (test code = 775) RED BLOOD CELL COUNT (BEAKER) 3.82 M/ L 3.93-5.22 L (test code = 761) HEMOGLOBIN (BEAKER) (test code = 10.7 GM/DL 11.2-15.7 L 410) HEMATOCRIT (BEAKER) (test code = 33.7 % 34.1-44.9 L 411) MEAN CORPUSCULAR VOLUME (BEAKER) 88.2 fL 79.4-94.8 (test code = 753) MEAN CORPUSCULAR HEMOGLOBIN 28.0 pg 25.6-32.2 (BEAKER) (test code = 751) MEAN CORPUSCULAR HEMOGLOBIN CONC 31.8 GM/DL 32.2-35.5 L (BEAKER) (test code = 752) RED CELL DISTRIBUTION WIDTH 12.3 % 11.7-14.4 (BEAKER) (test code = 412) PLATELET COUNT (BEAKER) (test 289 K/CU MM 150-450 code = 756) MEAN PLATELET VOLUME (BEAKER) 9.0 fL 9.4-12.3 L (test code = 754) NUCLEATED RED BLOOD CELLS 0 /100 WBC 0-0 (BEAKER) (test code = 413) NEUTROPHILS RELATIVE PERCENT 60 % (BEAKER) (test code = 429) LYMPHOCYTES RELATIVE PERCENT 29 % (BEAKER) (test code = 430) MONOCYTES RELATIVE PERCENT 8 % (BEAKER) (test code = 431) EOSINOPHILS RELATIVE PERCENT 2 % (BEAKER) (test code = 432) BASOPHILS RELATIVE PERCENT 1 % (BEAKER) (test code = 437) NEUTROPHILS ABSOLUTE COUNT 4.87 K/ L 1.56-6.13 (BEAKER) (test code = 670) LYMPHOCYTES ABSOLUTE COUNT 2.37 K/ L 1.18-3.74 (BEAKER) (test code = 414) MONOCYTES ABSOLUTE COUNT (BEAKER) 0.61 K/ L 0.24-0.36 H (test code = 415) EOSINOPHILS ABSOLUTE COUNT 0.13 K/ L 0.04-0.36 (BEAKER) (test code = 416) BASOPHILS ABSOLUTE COUNT (BEAKER) 0.05 K/ L 0.01-0.08 (test code = 417) IMMATURE GRANULOCYTES-RELATIVE 1 % 0-1 PERCENT (BEAKER) (test code = 2801) POCT-GLUCOSE [id number] 03:56:00 Test Item Value Reference Range Interpretation Comments POC-GLUCOSE METER 137 mg/dL 70-110 H : TESTED A T [facility] 6720 (BEAKER) (test code = [facility], [facility]8) 840[address]: Cryptologic Technician Operator/Analyst/Techni stevo ID = [id number] for DO MINGUEZ, CRISS POCT-GLUCOSE [id number] 23:35:00 Test Item Value Reference Range Interpretation Comments POC-GLUCOSE METER 136 mg/dL 70-110 H : TESTED A T [facility] 6720 (BEAKER) (test code = [facility], [facility]8) 51506: Cryptologic Technician Operator/Analyst/Techni stevo ID = [id number] for DO MINGUEZ, CRISS POCT-GLUCOSE [id number] 20:22:00 Test Item Value Reference Range Interpretation Comments POC-GLUCOSE METER 165 mg/dL 70-110 H : TESTED A T [facility] 6720 (BEAKER) (test code = [facility], [facility]8) 79237: Cryptologic Technician Operator/Analyst/Techni stevo ID = [id number] for DO MINGUEZ, CRISS POCT-GLUCOSE [id number] 16:09:00 Test Item Value Reference Range Interpretation Comments POC-GLUCOSE METER 112 mg/dL 70-110 H : TESTED A T [facility] 6720 (BEAKER) (test code = [facility], [facility]8) 19158: Cryptologic Technician Operator/Analyst/Techni stevo ID = [id number] for SERGEI RAMIREZ POCT-GLUCOSE [id number] 15:00:00 Test Item Value Reference Range Interpretation Comments POC-GLUCOSE METER 112 mg/dL 70-110 H : TESTED A T [facility] 6720 (BEAKER) (test code = [facility], [facility]8) 34972: Cryptologic Technician Operator/Analyst/Techni stevo ID = [id number] for ANNE SINGER RAD, CHEST, 1 VIEW, NON [id number] 13:57:00Reason for exam:->s/p RLLobectomtyIs the patient ?->NoShould [facility] be performed [facility] the [facility]?->YesFINAL REPORT INDICATION: s/p RLLobectomty COMPARISON: November 04, 2019 TECHNIQUE: Single frontal view of the chest. FINDINGS: Lungs and pleura: Lungs are hypoinflated. Mild bibasilar subsegmental atelectasis, right greater than left. No significant pneumothorax. Postsurgical changes related to recent right lower lobectomy.Heart and mediastinum: Normal heart size. Unremarkable mediastinal contours.Osseous structures: No acute abnormality.Other: Right chest tube. Signed: Carlene Shirley MDReport Verified Date/Time: 11/05/2019 13:57:29 Reading Location: [facility] Room BLOOD GAS, [id number] 11:16:00 Test Item Value Reference Range Interpretation Comments PH ARTERIAL (BEAKER) (test code = 7.30 7.35-7.45 L 383) PCO2 ARTERIAL (BEAKER) (test code 43 mmHg 35-45 = 384) PO2 ARTERIAL (BEAKER) (test code 294 mmHg 80-90 H = 385) O2 SATURATION ARTERIAL (BEAKER) 99.6 % 96.0-97.0 H (test code = 386) HCO3 ARTERIAL (BEAKER) (test code 21 mmol/L 21-29 = 388) BASE EXCESS ARTERIAL (BEAKER) -5.4 mmol/L -2.0-3.0 L (test code = 387) PATIENT TEMPERATURE (BEAKER) 36.6 C (test code = 1818) FIO2 (BEAKER) (test code = 1819) 100.0 % SODIUM NA-STAT [id number] 11:16:00 Test Item Value Reference Range Interpretation Comments SODIUM (BEAKER) (test code = 381) 133 meq/L 135-148 L GLUCOSE-STAT [id number] 11:16:00 Test Item Value Reference Range Interpretation Comments GLUCOSE RANDOM (BEAKER) (test code 234 mg/dL 70-110 H = 652) HGB/HCT (H&H) - STAT [id number] 11:16:00 Test Item Value Reference Range Interpretation Comments HEMOGLOBIN (BEAKER) (test code = 11.8 g/dL 12.0-15.0 L 410) HEMATOCRIT (BEAKER) (test code = 35.0 % 36.0-45.0 L 411) CALCIUM, [id number] 11:16:00 Test Item Value Reference Range Interpretation Comments CALCIUM IONIZED (BEAKER) (test 1.28 mmol/L 1.12-1.27 H code = 698) PH, BLOOD (BEAKER) (test code = 7.30 1810) POTASSIUM-STAT [id number] 11:14:00 Test Item Value Reference Range Interpretation Comments POTASSIUM (BEAKER) (test code = 5.2 meq/L 3.6-5.5 379) CALCIUM, [id number] 10:04:00 Test Item Value Reference Range Interpretation Comments CALCIUM IONIZED (BEAKER) (test 1.05 mmol/L 1.12-1.27 L code = 698) PH, BLOOD (BEAKER) (test code = 7.29 1810) BLOOD GAS, [id number] 10:04:00 Test Item Value Reference Range Interpretation Comments PH ARTERIAL (BEAKER) (test code = 7.30 7.35-7.45 L 383) PCO2 ARTERIAL (BEAKER) (test code 44 mmHg 35-45 = 384) PO2 ARTERIAL (BEAKER) (test code 227 mmHg 80-90 H = 385) O2 SATURATION ARTERIAL (BEAKER) 99.4 % 96.0-97.0 H (test code = 386) HCO3 ARTERIAL (BEAKER) (test code 21 mmol/L 21-29 = 388) BASE EXCESS ARTERIAL (BEAKER) -5.3 mmol/L -2.0-3.0 L (test code = 387) PATIENT TEMPERATURE (BEAKER) 36.1 C (test code = 1818) FIO2 (BEAKER) (test code = 1819) 100.0 % SODIUM NA-STAT [id number] 10:04:00 Test Item Value Reference Range Interpretation Comments SODIUM (BEAKER) (test code = 381) 134 meq/L 135-148 L GLUCOSE-STAT [id number] 10:04:00 Test Item Value Reference Range Interpretation Comments GLUCOSE RANDOM (BEAKER) (test code 246 mg/dL 70-110 H = 652) HGB/HCT (H&H) - STAT [id number] 10:04:00 Test Item Value Reference Range Interpretation Comments HEMOGLOBIN (BEAKER) (test code = 11.8 g/dL 12.0-15.0 L 410) HEMATOCRIT (BEAKER) (test code = 35.0 % 36.0-45.0 L 411) POTASSIUM-STAT [id number] 10:02:00 Test Item Value Reference Range Interpretation Comments POTASSIUM (BEAKER) (test code = 4.8 meq/L 3.6-5.5 379) POTASSIUM-STAT [id number] 09:03:00 Test Item Value Reference Range Interpretation Comments POTASSIUM (BEAKER) (test code = 4.1 meq/L 3.6-5.5 379) BLOOD GAS, [id number] 09:03:00 Test Item Value Reference Range Interpretation Comments PH ARTERIAL (BEAKER) (test code = 7.33 7.35-7.45 L 383) PCO2 ARTERIAL (BEAKER) (test code 40 mmHg 35-45 = 384) PO2 ARTERIAL (BEAKER) (test code 201 mmHg 80-90 H = 385) O2 SATURATION ARTERIAL (BEAKER) 99.3 % 96.0-97.0 H (test code = 386) HCO3 ARTERIAL (BEAKER) (test code 21 mmol/L 21-29 = 388) BASE EXCESS ARTERIAL (BEAKER) -5.0 mmol/L -2.0-3.0 L (test code = 387) PATIENT TEMPERATURE (BEAKER) 36.1 C (test code = 1818) FIO2 (BEAKER) (test code = 1819) 100.0 % SODIUM NA-STAT [id number] 09:03:00 Test Item Value Reference Range Interpretation Comments SODIUM (BEAKER) (test code = 381) 133 meq/L 135-148 L GLUCOSE-STAT [id number] 09:03:00 Test Item Value Reference Range Interpretation Comments GLUCOSE RANDOM (BEAKER) (test code 236 mg/dL 70-110 H = 652) HGB/HCT (H&H) - STAT [id number] 09:03:00 Test Item Value Reference Range Interpretation Comments HEMOGLOBIN (BEAKER) (test code = 11.8 g/dL 12.0-15.0 L 410) HEMATOCRIT (BEAKER) (test code = 35.0 % 36.0-45.0 L 411) CALCIUM, [id number] 09:03:00 Test Item Value Reference Range Interpretation Comments CALCIUM IONIZED (BEAKER) (test 1.05 mmol/L 1.12-1.27 L code = 698) PH, BLOOD (BEAKER) (test code = 7.32 1810) POCT-GLUCOSE [id number] 06:03:00 Test Item Value Reference Range Interpretation Comments POC-GLUCOSE METER 130 mg/dL 70-110 H : TESTED A T [facility] 6720 (BEAKER) ([facility], = 1538) [address]: Cryptologic Technician Operator/Analyst/Techni stevo ID = [id number] for JORD AN, LACRYSTAL RAD, CHEST, 2 [id number] 17:43:00Reason for exam:->lung massFINAL REPORT INDICATION: lung mass COMPARISON: September 10, 2019 TECHNIQUE: Chest radiograph, two views, PA and lateral. FINDINGS / IMPRESSION:Mass in the central right lower lobe is again demonstrated. It measures 2.8 cm in diameter compared to 3.6 cm (by my own measurement) onchest x-ray in August 2019. Cardiac and mediastinal contours are normal. No pneumothorax or pleural effusion is demonstrated. Mild thoracolumbar scoliosis noted. Signed: Cm Londono [facility] Verified Date/Time: 11/04/2019 17:43:57 Reading Location: [address] Radiology Reading Room [id number] 15:56:00 Test Item Value Reference Range Interpretation Comments PROTIME (BEAKER) (test code = 12.7 seconds 11.9-14.2 759) INR (BEAKER) (test code = 370) 1.0 <=5.9 PARTIAL THROMBOPLASTIN TIME 26.6 seconds 22.5-36.0 (BEAKER) (test code = 760) Effective 03/26/2019: PT Reference Range ChangeNew: 11.9-14.2 Previous: 11.7- 14.7RECOMMENDED COUMADIN/WARFARIN INR THERAPY RANGESSTANDARD DOSE: 2.0-3.0 Includes: PROPHYLAXIS for venous thrombosis, systemic embolization; TREATMENT for venous thrombosis and/or pulmonary embolus.HIGH RISK: Target INR is2.5-3.5 for patients wiht mechanical heart valves.COMPREHENSIVE METABOLIC PANEL 2019-11-04 15:52:00 Test Item Value Reference Range Interpretation Comments TOTAL PROTEIN 7.7 gm/dL 6.0-8.3 (BEAKER) (test code = 770) ALBUMIN (BEAKER) 3.9 g/dL 3.5-5.0 (test code = 1145) ALKALINE PHOSPHATASE 89 U/L 40-150 (BEAKER) (test code = 346) BILIRUBIN TOTAL 0.2 mg/dL 0.2-1.2 (BEAKER) (test code = 377) SODIUM (BEAKER) (test 135 meq/L 136-145 L code = 381) POTASSIUM (BEAKER) 4.5 meq/L 3.5-5.1 (test code = 379) CHLORIDE (BEAKER) 102 meq/L 98-107 (test code = 382) CO2 (BEAKER) (test 21 meq/L 22-29 L code = 355) BLOOD UREA NITROGEN 11 mg/dL 7-21 (BEAKER) (test code = 354) CREATININE (BEAKER) 0.88 mg/dL 0.57-1.25 (test code = 358) GLUCOSE RANDOM 324 mg/dL 70-105 H (BEAKER) (test code = 652) CALCIUM (BEAKER) 9.2 mg/dL 8.4-10.2 (test code = 697) AST (SGOT) (BEAKER) 11 U/L 5-34 (test code = 353) ALT (SGPT) (BEAKER) 6 U/L 6-55 (test code = 347) EGFR (BEAKER) (test 78 mL/min/1.73 ESTIMA TORIBIO GFR IS code = 1092) sq m NOT ACCURATE CREATININE CLEARANCE IN PREDICTING GLOMERULAR FILTRATION RATE . ESTIMATED GFR I S NOT APPLICABLE FOR DIALYSIS PATIEN TS. CBC W/PLT COUNT & AUTO [id number] 15:39:00 Test Item Value Reference Range Interpretation Comments WHITE BLOOD CELL COUNT (BEAKER) 13.1 K/ L 3.5-10.5 H (test code = 775) RED BLOOD CELL COUNT (BEAKER) 4.34 M/ L 3.93-5.22 (test code = 761) HEMOGLOBIN (BEAKER) (test code = 12.0 GM/DL 11.2-15.7 410) HEMATOCRIT (BEAKER) (test code = 37.1 % 34.1-44.9 411) MEAN CORPUSCULAR VOLUME (BEAKER) 85.5 fL 79.4-94.8 (test code = 753) MEAN CORPUSCULAR HEMOGLOBIN 27.6 pg 25.6-32.2 (BEAKER) (test code = 751) MEAN CORPUSCULAR HEMOGLOBIN CONC 32.3 GM/DL 32.2-35.5 (BEAKER) (test code = 752) RED CELL DISTRIBUTION WIDTH 12.2 % 11.7-14.4 (BEAKER) (test code = 412) PLATELET COUNT (BEAKER) (test 422 K/CU MM 150-450 code = 756) MEAN PLATELET VOLUME (BEAKER) 8.9 fL 9.4-12.3 L (test code = 754) NUCLEATED RED BLOOD CELLS 0 /100 WBC 0-0 (BEAKER) (test code = 413) NEUTROPHILS RELATIVE PERCENT 71 % (BEAKER) (test code = 429) LYMPHOCYTES RELATIVE PERCENT 21 % (BEAKER) (test code = 430) MONOCYTES RELATIVE PERCENT 4 % (BEAKER) (test code = 431) EOSINOPHILS RELATIVE PERCENT 2 % (BEAKER) (test code = 432) BASOPHILS RELATIVE PERCENT 1 % (BEAKER) (test code = 437) NEUTROPHILS ABSOLUTE COUNT 9.25 K/ L 1.56-6.13 H (BEAKER) (test code = 670) LYMPHOCYTES ABSOLUTE COUNT 2.77 K/ L 1.18-3.74 (BEAKER) (test code = 414) MONOCYTES ABSOLUTE COUNT (BEAKER) 0.55 K/ L 0.24-0.36 H (test code = 415) EOSINOPHILS ABSOLUTE COUNT 0.31 K/ L 0.04-0.36 (BEAKER) (test code = 416) BASOPHILS ABSOLUTE COUNT (BEAKER) 0.09 K/ L 0.01-0.08 H (test code = 417) IMMATURE GRANULOCYTES-RELATIVE 1 % 0-1 PERCENT (BEAKER) (test code = 2801) AFB CULTURE + [id number] 12:03:00 Test Item Value Reference Range Interpretation Comments CULTURE (BEAKER) (test No acid-fast bacilli code = 1095) isolated in 42 days AFB SMEAR (BEAKER) No acid fast bacilli (test code = 994) seen AFB CULTURE + [id number] 12:03:00 Test Item Value Reference Range Interpretation Comments CULTURE (BEAKER) (test No acid-fast bacilli code = 1095) isolated in 42 days AFB SMEAR (BEAKER) No acid fast bacilli (test code = 994) seen AFB CULTURE + [id number] 12:03:00 Test Item Value Reference Range Interpretation Comments CULTURE (BEAKER) (test No acid-fast bacilli code = 1095) isolated in 42 days AFB SMEAR (BEAKER) No acid fast bacilli (test code = 994) seen FUNGUS CULTURE + [id number] 18:36:00 Test Item Value Reference Range Interpretation Comments CULTURE (BEAKER) (test No fungus isolated in code = 1095) 28 days FUNGUS SMEAR (BEAKER) No fungi seen (test code = 1406) FUNGUS CULTURE + [id number] 18:36:00 Test Item Value Reference Range Interpretation Comments CULTURE (BEAKER) (test No fungus isolated in code = 1095) 28 days FUNGUS SMEAR (BEAKER) No fungi seen (test code = 1406) FUNGUS CULTURE + [id number] 18:36:00 Test Item Value Reference Range Interpretation Comments CULTURE (BEAKER) (test No fungus isolated in code = 1095) 28 days FUNGUS SMEAR (BEAKER) No fungi seen (test code = 1406) TISSUE [id number] 17:23:00Surgical Pathology Report Case: [id number] Authorizing Provider: Love Cedeno MD Collected: 09/10/2019 1322 Ordering Location: [facility] Received: 09/10/2019 1443 SERVICES Pathologist: Catalina Arnold MD Specimens: A) - Lung, Right Lower Lobe, TBBX #1. Process in Cytology for Collodion Bag, Reflex Genetic Markers. B) - Lung, Right Lower Lobe, TBBX #2. Process in Cytology for Collodion Bag, Reflex Genetic Markers. 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 Cooper Bob on 09/15/[id number], [id number], [id number] X [phone] A: The specimen is received in a formalin-filled container and labeled with the patient's information and labeled "Right lower lobe lung biopsy" and consists of eight fragments of bear off white soft tissue and hemorrhagic soft tissuemeasuring 0.5 cm each, one fragment of hemorrhagic soft tissue measuring 0.6 cm, and one fragment oftan off white soft tissue and hemorrhagic soft tissue measuring 1.4 cm submitted entirely A1 in a mesh bag. Specimen B: The specimen is ,received in a formalin-filled container and labeled with the patient's information and labeled "Right lower lobe lung biopsy" and consists of two fragments of hemorrhagic soft tissue measuring 0.4 cm each, and eight fragments of bear off white soft tissue and hemorrhagic soft tissue measuring 0.6 cm each, submitted entirely B1 in a mesh bag.The lung nodule from theright lower lobe transbronchial biopsy shows lung parenchyma that was infiltrated by small blue celltumor. The tumor is composed of small monotonous appearing tumor cells with round nuclei, clear/eosinophilic cytoplasm with salty pepper nuclei. The tumor cells are arranged in small aggregates and infiltrating the lung parenchyma. The immunohistochemical stain is performed. The tumor cells are positive for TTF-1, chromogranin, synaptophysin, CD56 and AE1/AE3. The Ki-67 proliferation index is about 2%. No mitotic figure is identified in the 2mm\\S\\2. No tumor necrosis is seen. 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 The interpretation of this case included the use of immunohistochemistry or special stains.Control Slides Examined: In-house known positive controls were evaluated along with the test tissue. These control slides run alongside of the patients sample show appropriate staining. Internal positive and negative controls when available areevaluated Immunohistochemistry technical testing was performed at [facility], Pathology Laboratory where it was developed and its performance characteristics were determined. It has not been cleared or approved by the [place]. Food and Drug Administration. The FDA has determined that such clearance or approval is not necessary. The test is used for clinical purposes. It should not be regarded as investigational or for research. This laboratory is certified under the Clinical Laboratory Improvement Amendments of 1988 (CLIA-88) as qualified to perform high complexity clinical laboratory testing.SURGICALLY OBTAINED CULTURE + GRAM [id number] 11:51:00 Test Item Value Reference Range Interpretation Comments CULTURE (BEAKER) (test No growth code = 1095) GRAM STAIN RESULT No White blood cells (BEAKER) (test code = seen 1123) GRAM STAIN RESULT No organisms seen (BEAKER) (test code = 17056) BRONCHIAL CULTURE + GRAM [id number] 10:31:00 Test Item Value Reference Range Interpretation Comments CULTURE (BEAKER) (test No growth code = 1095) GRAM STAIN RESULT <1+ White blood cells (BEAKER) (test code = seen 1123) GRAM STAIN RESULT No organisms seen (BEAKER) (test code = 69209) BRONCHIAL CULTURE + GRAM [id number] 10:31:00 Test Item Value Reference Range Interpretation Comments CULTURE (BEAKER) (test No growth code = 1095) GRAM STAIN RESULT <1+ White blood cells (BEAKER) (test code = seen 1123) GRAM STAIN RESULT No organisms seen (BEAKER) (test code = 05421) FINE NEEDLE ASPIRATION BY [id number] 18:51:00Medical Cytology Report Case: [id number] Aut horizing Provider: Love Cedeno MD Collected: 09/10/2019 1213 Ordering Location: [facility] Received: 09/10/2019 1233 SERVICES Pathologist: Cat Guerra MD Specimen: Lung, Right Lower Lobe RIGHT LOWER LOBE LUNG LESION EBUS FNA BY CLINICIAN (DIRECT SMEARS AND CELL BLOCK OF ASPIRATE): - NEUROENDOCRINE NEOPLASM ( SEE COMMENT) Signing Pathologist Direct Phone Line: [phone] signed by Cat Guerra MD on 09/12/2019 at 6:51 PMPlease see cases [id number], [id number], [id number] through 2839 for additional [id number], 19546, 176525 cm right lower lobe lung mass RIGHT LOWER LOBE LUNG LESION EBUS FNA40 mls in cytorich red; 6 direct smear slides, cell blockCollected: [id number]: [id number] OF LYMPHOCYTES, MAY BE NEUROENDOCRINE CELLS, DISCOHESIVE VASCULAR CHANNELS, NO GRANULOMAS (ONE GIANT TYPE CELL). FLOW, CELL BLOCK, DEFER TO MORE STUDIES (12:48PM, )The interpretationof this case included the use of immunohistochemistry or special stains.Control Slides Examined: In-house known positive controls were evaluated along with the test tissue. These control slides run alongside of the patients sample show appropriate staining. Internal positive and negative controls when available are evaluated Immunohistochemistry technical testing was performed at [facility], Pathology Laboratory where it was developed and its performance characteristics were d etermined. It has not been cleared or approved by the U.S. Food and Drug Administration. The FDA hasdetermined that such clearance or approval is not necessary. The test is used for clinical purposes.It should not be regarded as investigational or for research. This laboratory is certified under theClinical Laboratory Improvement Amendments of 1988 (CLIA-88) as qualified to perform high complexityclinical laboratory testing.[facility], Department of Pathology, [address] [place] [address], [facility], [facility] of [facility]ology,[address] [place], [place] [id number], [facility]hbxyK[facility], Departmentof [facility]ology, [address] [place] [address], [id number] 18:40:00Medical Cytology Report Case: [id number] Authorizing Provider: Love Cedeno MD Collected: 09/10/2019 1321 Ordering Location: [facility] Received: 09/10/2019 1424 SERVICES Pathologist: Cat Guerra MD Specimen: Lung, Right Lower Lobe RIGHT LOWER LOBE LUNG LESION BRUSHING (CYTOSPINS AND CELL BLOCK): - NEUROENDOCRINE NEOPLASM (SEE COMMENT) Signing Pathologist Direct Phone Line: [phone] signed by Cat Guerra MD on 09/12/2019 at 6:40 PMPreliminary result electronically signed by Cat Guerra MD on 09/12/2019 at 6:39 PMAdditional studies are being done on surgical correlate, [id number].Please refer to that case for additional information.Please also see cases [id number], [id number] and 2837 through 2839 for additional [id number], 991581 cm right lower lobe lung mass RIGHT LOWER LOBE LUNG LESION BRUSHING1 brush tip in cytorich red; 2 cytospins, cell blockCollected: [id number]: [id number] [facility], Department of Pathology, [address] [place] [address], [facility]kyhlvK[facility], Department of Pathology, [address] [place] [address], XrqumaK[facility], Department of Pathology, [address] [place] [address], UNDF NEEDLE ASPIRATE BY [id number] 18:21:00Medical Cytology Report Case: [id number] Authorizing Provider: Love Cedeno MD Collected: 09/10/2019 1324 Ordering Location: [facility] Received: 09/10/2019 1424 SERVICES Pathologist: Cat Guerra MD Specimen: Lymph Node, Lower Paratracheal, Left, Station 4L LYMPH NODE, LOWER PARATRACHEAL, LEFT, STATION 4L EBUS FNA BY CLINICIAN (CYTOSPINS AND CELL BLOCK OF ASPIRATE): - NEGATIVE FOR EPITHELIAL MALIGNANCY - ADEQUATE LYMPHOCYTES Signing Pathologist Direct Phone Line: [phone] signed by Cat Guerra MD on 09/12/2019 at 6:21 PMPlease see cases [id number], [id number], C19- 2829 and 2836 through [id number], 846232 cm right lower lobe lung mass LYMPH NODE, LOWER PARATRACHEAL, LEFT, STATION 4L EBUS FNA35 mls in cytorich red; 2 cytospins, cell blockCollected: [id number]: [id number] interpretation of this case included the use of immunohistochemistry or special stains.Control Slides Examined: In-house known positive controls were evaluated along with the test tissue. These control slides run alongside of the patients sample show appropriate staining. Internal positive and negative controls when available are evaluated Immunohistochemistry technical testing was performed at [facility], Pathology Laboratory where it wasdeveloped and its performance characteristics were determined. It has not been cleared or approved by the U.S. Food and Drug Administration. The FDA has determined that such clearance or approval is not necessary. The test is used for clinical purposes. It should not be regarded as investigational or for research. This laboratory is certified under the Clinical Laboratory Improvement Amendments of 1988 (CLIA-88) as qualified to perform high complexity clinical laboratory testing.[facility], Department of Pathology, [address] [place] [address], [facility]flDmSH[facility], Department of Pathology, [address] [place] [address], DotjfzK[facility], Department of Pathology, [address] [place] [address], UCVQ NEEDLE ASPIRATE BY [id number] 11:29:00Medical Cytology Report Case: [id number] Authorizing Provider: Love Cedeno MD Collected: 09/10/2019 1336 Ordering Location: [facility] Received: 09/10/2019 1439 SERVICES Pathologist: Cat Guerra MD Specimen: Lymph Node, Interlobar, Right, Station 11R LYMPH NODE, INTERLOBAR RIGHT, STATION 11R EBUS FNA BY CLINICIAN (CYTOSPINS AND CELL BLOCK OF ASPIRATE): - NEGATIVE FOR E PITHELIAL MALIGNANCY - ADEQUATE LYMPHOCYTES SEEN Signing Pathologist Direct Phone Line: [phone] signed by Cat Guerra MD on 09/12/2019 at 11:29 AMPlease see cases [id number], [id number], C19- 3649 and 2836 through [id number], 638691 cm right lower lobe lung mass LYMPH NODE, INTERLOBAR RIGHT, STATION 11R EBUS FNA35 mls in cytorich red; 2 cytospins, cell blockCollected: [id number]: [id number] interpretation of this case included the use of immunohistochemistry or special stains.Control Slides Examined: In-house known positive controls were evaluated along with the test tissue. These control slides run alongside of the patients sample show appropriate staining.Internal positive and negative controls when available are evaluated Immunohistochemistry technical testing was performed at [facility], Pathology Laboratory where it was developed and its performance characteristics were determined. It has not been cleared or approved by the U.S. Food and Drug Administration. The FDA has determined that such clearance or approval is not necessary. The test is used for clinical purposes. It should not be regarded as investigational or for research. This laboratory is certified under the Clinical Laboratory Improvement Amendments of 1988 (CLIA-88) as qualified to perform high complexity clinical laboratory testing.[facility], Department of Pathology, [address] [place] [address], [facility]klvtyK[facility], Department of Pathology, [address] [place] [address], KntqcfK[facility], Department of Pathology, [address] [place] [address], [id number] NEEDLE ASPIRATE BY [id number] 10:57:00Medical Cytology Report Case: [id number] Authorizing Provider: Love Cedeno MD Collected: 09/10/2019 1324 Ordering Location: [facility] Received: 09/10/2019 1424 SERVICES Pathologist: Cat Guerra MD Specimen: Lymph Node, Interlobar, Left, Station 11L LYMPH NODE, INTERLOBAR, LEFT, STATION 11L EBUS FNA BY CLINICIAN (CYTOSPINS AND CELL BLOCK OF ASPIRATE): - NEGATIVE FOR E PITHELIAL MALIGNANCY - ADEQUATE LYMPHOID CELLS PRESENT Signing Pathologist Direct Phone Line:[phone] signed by Cat Guerra MD on 09/12/2019 at 10:57 AMPlease see cases [id number], F19- [id number], [id number] and 2836 through [id number], 598169 cm right lower lobe lung mass LYMPH NODE, INTERLOBAR, LEFT, STATION 11L EBUS FNA35 mls in cytorich red; 2 cytospins, cell blockCollected: [id number]: [id number] interpretation of this case included the use of immunohistochemistry or special stains.Control Slides Examined: In-house known positive controls were evaluated along with the test tissue. These control slides run alongside of the patients sample show appropriate staining. Internal positive and negative controls when available are evaluated Immunohistochemistry technical testing was performed at [facility], Pathology Laboratory where it was developed and its performance characteristics were determined. It has not been cleared or approved by the U.S. Food and Drug Administration. The FDA has determined that such clearance or approval is not necessary. The test is used for clinical purposes. It should not be regarded as investigational or forresearch. This laboratory is certified under the Clinical Laboratory Improvement Amendments of 1988 (CLIA-88) as qualified to perform high complexity clinical laboratory testing.[facility], Department of Pathology, [address] [place] [address], [facility], Department of Pathology, [address] [place] [address], PovjeiK[facility], Department of Pathology, [address] [place] [address], QAQB/CONCENTRATION [id number] 01:15:00 Test Item Value Reference Range Interpretation Comments CONCENTRATION CHARGED (BEAKER) (test Done code = 2657) SPIN/CONCENTRATION [id number] 01:15:00 Test Item Value Reference Range Interpretation Comments CONCENTRATION CHARGED (BEAKER) (test Done code = 2657) FLOW [id number] 15:59:00Flow Cytometry Report Case: [id number] Authorizing Provider: Love Cedeno MD Collected: 09/10/2019 1320 Ordering Location: [facility] Received: 09/10/2019 1433 SERVICES Pathologist: Gume Keys MD Specimen: Other LUNG, RIGHT LOWERLOBE, FLOW CYTOMETRY OF FINE NEEDLE ASPIRATION:ABNORMAL CD56 POSITIVE CD45 NEGATIVE POPULATION (27% OF ANALYZED EVENTS).NO MONOTYPIC B-CELL POPULATION IDENTIFIEDNO ABERRANT T-CELL POPULATION IDENTIFIEDCORRELATION WITH MORPHOLOGY REQUIRED at 3:59 [id number] woman with mass of right lower lobe of lungLung, right lower lobeCD8, surface-kappa, CD56, surface-lambda, CD5, CD19, CD10, CD3, CD4, cKappa, cLambda, CD20, CD138, CD38, UX75Dpozjpbf Viability: 91.7% Number of Events Acquired: 29927 The following populations are identified:An abnormal population of CD56 positive CD45 negative events is identified (27%). Lymphocytes: Bright CD45+ lymphocytes comprise 4.8% of total cells. T cells show a CD4:CD8 ratio of 1.8 and normal e xpression of the odonnell T cell antigens CD3 and CD5. B cells are polytypic with a kappa:lambda ratio of 1.2. Myeloid/monocytic populations: As identified by CD45 and light scatter characteristics, granulocytes comprise 65.6% of total cells, and monocytes comprise 1.7% of total cells. The remaining events analyzed represent nonviable cells, non-hematolymphoid cells, and debris.These tests were developedand their performance characteristics determined by [facility]. They have not been cleared or approved by the U.S. Food and Drug Administration. The FDA has determined that such clearance or approval is not necessary. It should not be regarded as investigational or for research. This laboratory is certified under the Clinical Laboratory Improvement Amendments of 1988 ("CLIA") asqualified to perform high-complexity clinical testing.FLOW CYTOMETRY [id number] 15:57:00 Test Item Value Reference Range Interpretation Comments FLOW CYTOMETRY RESULT See Separate Report POINTER (BEAKER) (test code = 2758) FLOW CYTOMETRY AP CASE # [id number] (BEAKER) (test code = 2759) EBUS FNA [id number] 16:00:00 Test Item Value Reference Range Interpretation Comments CYTOLOGY RESULT POINTER See Separate Report (BEAKER) (test code = 2629) EBUS FNA [id number] 16:00:00 Test Item Value Reference Range Interpretation Comments CYTOLOGY RESULT POINTER See Separate Report (BEAKER) (test code = 2629) EBUS FNA [id number] 16:00:00 Test Item Value Reference Range Interpretation Comments CYTOLOGY RESULT POINTER See Separate Report (GLENDA) (test code = 2629) CYTOLOGY [id number] 16:00:00 Test Item Value Reference Range Interpretation Comments CYTOLOGY RESULT POINTER See Separate Report (GLENDA) (test code = 2629) RAD, CHEST, 1 VIEW, NON [id number] 14:25:00Reason for exam:->s/p RLL TBBX, cough, rule out PTXFINAL REPORT INDICATION: s/p RLL TBBX, cough, rule out PTX COMPARISON: Correlation to chest CT September 09, 2019 TECHNIQUE: Single frontal view of the chest. IMPRESSION:Lungs andpleura: Nodular opacity in the right lower lobe unchanged from prior. No effusion. No pneumothorax.Heart and mediastinum: Normal heart size. Unremarkable mediastinal contours.Osseous structures: No acute abnormality.Other: None. Signed: JR Lake Robert MDReport Verified Date/Time: 09/10/201914:25:11 Reading Location: [facility] Radiology Reading Room POCT-GLUCOSE [id number] 14:22:00 Test Item Value Reference Range Interpretation Comments POC-GLUCOSE METER 186 mg/dL 70-110 H : TESTED A T [facility] 6720 (GLENDA) (test code = ESTELITA Martinez [facility], 1538) [address]: Cryptologic Technician Operator/Analyst/Techni stevo ID = [id number] for ANNE SINGER, FLUORO, NON-SPECIFIC, UP TO 1 [id number] 14:08:00Reason for exam:- >Surgical procedure.FINAL REPORT A fluoroscopic unit was utilized for a procedure performed in the operating room. No interpretation was requested. Please refer to the operative report regarding findings. Please refer to PACS for patient radiation dose information. Signed: JR Lake Robert MDReport Verified Date/Time: 09/10/2019 14:08:18 Reading Location: [facility] Radiology Reading Room FINE NEEDLE ASPIRATE (FNA) [id number] 14:00:00 Test Item Value Reference Range Interpretation Comments CYTOLOGY RESULT POINTER See Separate Report (BEAKER) (test code = 2629) COMPREHENSIVE METABOLIC [id number] 10:54:00 Test Item Value Reference Range Interpretation Comments TOTAL PROTEIN 7.3 gm/dL 6.0-8.3 Specimen sligh tly (BEAKER) (test code = hemoly zed 770) ALBUMIN (BEAKER) 3.7 g/dL 3.5-5.0 Specimen sl ightly (test code = 1145) hemolyzed ALKALINE PHOSPHATASE 87 U/L 40-150 (BEAKER) (test code = 346) BILIRUBIN TOTAL 0.4 mg/dL 0.2-1.2 Specimen sli ghtly (BEAKER) (test code = hemoly zed 377) SODIUM (BEAKER) (test 134 meq/L 136-145 L code = 381) POTASSIUM (BEAKER) 4.4 meq/L 3.5-5.1 Specimen slightly (test code = 379) hemolyzed CHLORIDE (BEAKER) 104 meq/L 98-107 (test code = 382) CO2 (BEAKER) (test 23 meq/L 22-29 code = 355) BLOOD UREA NITROGEN 10 mg/dL 7-21 (BEAKER) (test code = 354) CREATININE (BEAKER) 0.77 mg/dL 0.57-1.25 Specimen slightly (test code = 358) hemolyzed GLUCOSE RANDOM 263 mg/dL 70-105 H (BEAKER) (test code = 652) CALCIUM (BEAKER) 8.8 mg/dL 8.4-10.2 (test code = 697) AST (SGOT) (BEAKER) 14 U/L 5-34 Specimen slightly (test code = 353) hemolyzed ALT (SGPT) (BEAKER) 14 U/L 6-55 Specimen slightly (test code = 347) hemolyzed EGFR (BEAKER) (test 91 mL/min/1.73 ESTIMA TORIBIO GFR IS code = 1092) sq m NOT ACCURATE CREATININE CLEARANCE IN PREDICTING GLOMERULAR FILTRATION RATE . ESTIMATED GFR I S NOT APPLICABLE FOR DIALYSIS PATIEN TS. [id number] 09:23:00 Test Item Value Reference Range Interpretation Comments PARTIAL THROMBOPLASTIN TIME 26.0 seconds 22.5-36.0 (BEAKER) (test code = 760) PROTHROMBIN [id number] 09:22:00 Test Item Value Reference Range Interpretation Comments PROTIME (BEAKER) (test code = 12.4 seconds 11.9-14.2 759) INR (BEAKER) (test code = 370) 1.0 <=5.9 Effective 03/26/2019: PT Reference Range ChangeNew: 11.9-14.2 Previous: 11.7- 14.7RECOMMENDED COUMADIN/WARFARIN INR THERAPY RANGESSTANDARD DOSE: 2.0-3.0 Includes: PROPHYLAXIS for venous thrombosis, systemic embolization; TREATMENT for venous thrombosis and/or pulmonary embolus.HIGH RISK: Target INR is2.5-3.5 for patients wiht mechanical heart valves.CBC W/PLT COUNT & AUTO [id number] 09:14:00 Test Item Value Reference Range Interpretation Comments WHITE BLOOD CELL COUNT (BEAKER) 7.3 K/ L 3.5-10.5 (test code = 775) RED BLOOD CELL COUNT (BEAKER) 4.44 M/ L 3.93-5.22 (test code = 761) HEMOGLOBIN (BEAKER) (test code = 12.4 GM/DL 11.2-15.7 410) HEMATOCRIT (BEAKER) (test code = 38.6 % 34.1-44.9 411) MEAN CORPUSCULAR VOLUME (BEAKER) 86.9 fL 79.4-94.8 (test code = 753) MEAN CORPUSCULAR HEMOGLOBIN 27.9 pg 25.6-32.2 (BEAKER) (test code = 751) MEAN CORPUSCULAR HEMOGLOBIN CONC 32.1 GM/DL 32.2-35.5 L (BEAKER) (test code = 752) RED CELL DISTRIBUTION WIDTH 12.0 % 11.7-14.4 (BEAKER) (test code = 412) PLATELET COUNT (BEAKER) (test 373 K/CU MM 150-450 code = 756) MEAN PLATELET VOLUME (BEAKER) 9.0 fL 9.4-12.3 L (test code = 754) NUCLEATED RED BLOOD CELLS 0 /100 WBC 0-0 (BEAKER) (test code = 413) NEUTROPHILS RELATIVE PERCENT 64 % (BEAKER) (test code = 429) LYMPHOCYTES RELATIVE PERCENT 24 % (BEAKER) (test code = 430) MONOCYTES RELATIVE PERCENT 5 % (BEAKER) (test code = 431) EOSINOPHILS RELATIVE PERCENT 4 % (BEAKER) (test code = 432) BASOPHILS RELATIVE PERCENT 1 % (BEAKER) (test code = 437) NEUTROPHILS ABSOLUTE COUNT 4.67 K/ L 1.56-6.13 (BEAKER) (test code = 670) LYMPHOCYTES ABSOLUTE COUNT 1.74 K/ L 1.18-3.74 (BEAKER) (test code = 414) MONOCYTES ABSOLUTE COUNT (BEAKER) 0.37 K/ L 0.24-0.36 H (test code = 415) EOSINOPHILS ABSOLUTE COUNT 0.32 K/ L 0.04-0.36 (BEAKER) (test code = 416) BASOPHILS ABSOLUTE COUNT (BEAKER) 0.08 K/ L 0.01-0.08 (test code = 417) IMMATURE GRANULOCYTES-RELATIVE 1 % 0-1 PERCENT (BEAKER) (test code = 2801) CT, CHEST, WITHOUT IV [id number] 13:03:00Need 0.625mm cuts for fusion CORRY BRONCH PROTOCOLFINAL REPORT CT of the chest, without contrast Clinical History: right lower lobe lung mass Technique: CT of the chest is performed without intravenous contrast administration.This exam was performed according to our departmental dose optimization program which includes automated exposure control, adjustment of the mA and/or kV according to patient's size and/or use of iterative reconstructive technique. Comparison Film: None Discussion: Visualized thyroid gland is unremarkable. There is no supraclavicular, axillary, mediastinal or hilar lymphadenopathy. Heart is normal in size, no pericardial effusion. A lobulated mass in the right lower lobe measures 3.5 x 4 x 2.9 cm, containing faint calcifications. There were two foci of branching opacities peripheral to this lesionthat may reflect mucus plugging in dilated and obstructed bronchi, versus endobronchial tumoral extension. There is minimal atelectasis in the right lower lobe. A few tiny centrilobular groundglass nodules in the right lower lobe adjacent to the mass likely reflects postobstructive bronchiolitis. No pleural effusion. Central airways are patent. There is a nonobstructive stone within the left kidney measuring 1 cm. Partially imaged upper abdomen is otherwise unremarkable. Osseous structures demonstrate mild scoliosis. No suspicious bony lesion is identified. Impression: Right lower lobe mass lesion as described. Signed: Krista Conneport Verified Date/Time: 09/09/2019 13:03:50 Reading Location: [facility] B1 [id number] Ortho Consult Reading Room
[2022-03-16 17:18] LABS: Urine Blood Trace-intact (Negative); Urine Glucose Negative (Negative); Urine Protein 1+ (Negative); Urine Specific Gravity >=1.030 (1.005-1.030)
[2022-03-16] MEDS ORDERED: MORPHINE 2 MG/ML SYR ONE ×2 (17:26→19:31)
[2022-03-16] MEDS ORDERED: NA CHLORIDE 0.9% 1,000 ML ONE (17:27)
[2022-03-16] MEDS ORDERED: FAMOTIDINE 20 MG/2 ML VIAL IV ONE (17:27)
[2022-03-16] MEDS ORDERED: ONDANSETRON 4 MG/2 ML VIAL ONE (17:27)
[2022-03-16 17:33] LABS: Absolute Lymphocytes (CBC) 2.3 K/uL (0.7-4.9); Hematocrit 40.7 % (36.0-45.0); MPV 7.5 fL (7.6-11.3); RBC Red Blood Cell Count 4.66 M/uL (3.86-4.86)
[2022-03-16 17:54] LABS: Albumin 3.6 g/dL (3.4-5.0); Potassium 3.7 mmol/L (3.5-5.1); Protein, Total 7.6 g/dL (6.4-8.2)
--- NOTE | 2022-03-16 17:54 | RAD REPORT ---
EXAM DESCRIPTION: US - Abdomen Exam Limited - 03/16/2022 5:32 pm CLINICAL HISTORY: ABD PAIN COMPARISON: No comparisons FINDINGS: The gallbladder demonstrates small stones in the gallbladder. No pericholecystic fluid or gallbladder wall thickening. The common bile duct is dilated measuring 8 mm. The liver demonstrates no findings of intrahepatic biliary dilatation. IMPRESSION: Cholelithiasis. Dilated common bile duct likely indicates choledocholithiasis.
[2022-03-16 17:55] LABS: Bilirubin Total 0.9 mg/dL (0.2-1.0)
--- NOTE | 2022-03-16 18:16 | ER ---
Nurse's Notes [facility] Name: Ander Lan Age: 26 yrs Sex: Female : 1995 Arrival Date: 03/16/2022 Time: 16:37 Bed 30 Private MD: Neno Arauz Diagnosis: Other cholelithiasis with obstruction-choledocholithiasis;Upper abdominal pain, unspecified Presentation: 03/16 16:42 Chief complaint: Patient states: Epigastric pain, N/V. Pt reporting "gallbladder ld1 attack.". Coronavirus screen: At this time, the client does not indicate any symptoms associated with coronavirus-19. Ebola Screen: No symptoms or risks identified at this time. Initial Sepsis Screen: Does the patient meet any 2 criteria? No. Patient's initial sepsis screen is negative. Does the patient have a suspected source of infection? No. Patient's initial sepsis screen is negative. Risk Assessment: Do you want to hurt yourself or someone else? Patient reports no desire to harm self or others. Onset of symptoms was March 16, 2022 at 16:43. 16:42 Method Of Arrival: Ambulatory ld1 16:42 Acuity: CAMILLA 3 ld1 Triage Assessment: 16:43 General: Appears in no apparent distress. comfortable, Behavior is calm, cooperative, ld1 appropriate for age. Pain: Complains of pain in epigastric area Pain does not radiate. Pain currently is 10 out of 10 on a pain scale. Quality of pain is described as throbbing. EENT: No signs and/or symptoms were reported regarding the EENT system. Neuro: Level of Consciousness is awake, alert, obeys commands, Oriented to person, place, time, situation. Cardiovascular: Capillary refill < 3 seconds Patient's skin is warm and dry. Respiratory: Airway is patent Respiratory effort is even, unlabored, Respiratory pattern is regular, symmetrical. GI: Abdomen is round non-distended, Reports upper abdominal pain, nausea, vomiting. : No signs and/or symptoms were reported regarding the genitourinary system. Derm: No signs and/or symptoms reported regarding the dermatologic system. Musculoskeletal: No signs and/or symptoms reported regarding the musculoskeletal system. [employer]SEM[employer]ER: 16:43 LMP 03/16/2022 ld1 Historical: - Allergies: 16:43 No Known Allergies; ld1 - PMHx: 16:43 Diabetes Type 1; grave's disease; Hypertensive disorder; scoliosis; Thyroid problem; ld1 - PSHx: 16:43 R lubectomy; Radiation to thyroid; ld1 - Immunization history:: Adult Immunizations up to date, Client reports having NOT received the Covid vaccine. - Social history:: Smoking status: Patient denies any tobacco usage or history of. Patient/guardian denies using alcohol. - Family history:: not pertinent. Screenin:00 Abuse screen: Denies threats or abuse. Nutritional screening: No deficits noted. aa5 Tuberculosis screening: No symptoms or risk factors identified. Fall Risk None identified. Assessment: 17:00 General: Appears uncomfortable, Behavior is calm, cooperative. Pain: Complains of pain aa5 in right upper quadrant and epigastric area Pain currently is 10 out of 10 on a pain scale. Quality of pain is described as sharp, Pain began 2-3 days ago. Is continuous. Neuro: Level of Consciousness is awake, alert, obeys commands, Oriented to person, place, time, situation. Cardiovascular: Heart tones S1 S2 present Rhythm is regular. Respiratory: Airway is patent Respiratory effort is even, unlabored, Respiratory pattern is regular, symmetrical. GI: Abdomen is round non-distended, Bowel sounds present X 4 quads. Abd is soft and non tender X 4 quads. Reports upper abdominal pain, nausea. : No signs and/or symptoms were reported regarding the genitourinary system. EENT: No signs and/or symptoms were reported regarding the EENT system. Derm: Skin is pink, warm \\T\\ dry. Musculoskeletal: Range of motion: intact in all extremities. 17:34 Reassessment: Patient is alert, oriented x 3, equal unlabored respirations, skin aa5 warm/dry/pink. 18:23 Reassessment: Patient is alert, oriented x 3, equal unlabored respirations, skin aa5 warm/dry/pink. Patient states feeling better. Patient states symptoms have improved. Reports pain has improved, states she does not need 2nd dose of morphine at this time. . Vital Signs: 16:42 BP 116 / 79; Pulse 66; Resp 18; Temp 98.6(TE); Pulse Ox 100% on R/A; Weight 86.18 kg; ld1 Height 5 ft. 4 in. (162.56 cm); Pain 10/10; 18:23 BP 106 / 67; Pulse 84; Resp 16; Pulse Ox 100% on R/A; aa5 20:00 BP 102 / 70; Pulse 63; Resp 18; Pulse Ox 98% ; ll3 16:42 Body Mass Index 32.61 (86.18 kg, 162.56 cm) ld1 ED Course: 16:37 Patient arrived in ED. as 16:37 Neno Arauz DO is Private Physician. as 16:39 Sulaiman Riddle MD is Attending Physician. [facility] 16:43 Triage completed. ld1 16:43 Arm band placed on right wrist. ld1 16:55 Jo Ann Mazariegos RN is Primary Nurse. aa5 17:00 Patient has correct armband on for positive identification. Bed in low position. Call aa5 light in reach. Side rails up X 1. Pulse ox on. NIBP on. 17:15 Initial lab(s) drawn, by ms, sent to lab. Inserted saline lock: 20 gauge in right aa5 antecubital area, using aseptic technique. Blood collected. 17:34 Abdomen Limited US In Process Unspecified. EDMS 18:14 Caden Zelaya MD is Hospitalizing Provider. [facility] 19:00 Report given to THI Phillips. aa5 22:25 No provider procedures requiring assistance completed. Patient admitted, IV remains in ll3 place. Administered Medications: 17:33 Drug: Zofran (Ondansetron) 4 mg Route: IVP; Site: right antecubital; aa5 17:34 Drug: morphine 2 mg Route: IVP; Site: right antecubital; aa5 17:35 Drug: NS 0.9% 1000 ml Route: IV; Rate: 1 bolus; Site: right antecubital; aa5 18:23 Follow up: IV Status: Completed infusion; IV Intake: 1000ml aa5 17:35 Drug: Pepcid (famotidine) 20 mg Route: IVP; Site: right antecubital; aa5 18:23 Drug: Zosyn (piperacillin-tazobactam) 3.375 grams Route: IVPB; Infused Over: 60 mins; aa5 Site: right antecubital; 19:34 Follow up: Response: No adverse reaction; IV Status: Completed infusion; IV Intake: ll3 100ml 19:34 Drug: morphine 2 mg Route: IVP; Site: right antecubital; ll3 21:49 Follow up: Response: No adverse reaction; Marked relief of symptoms ll3 Intake: 18:23 IV: 1000ml; Total: 1000ml. aa5 19:34 IV: 100ml; Total: 1100ml. ll3 Outcome: 18:15 Decision to Hospitalize by Provider. carmen 22:25 Admitted to Med/surg accompanied by tech, via wheelchair, room 221, with chart, Report ll3 called to THI Nolen 22:25 Condition: stable 22:25 Discharge instructions given to patient, Instructed on the need for admit, Demonstrated understanding of instructions. 22:26 Patient left the ED. ll3 Signatures: Dispatcher [employer] EDMS Sulaiman Riddle MD MD cha Martinez, Amelia as Calderon, Audri, RN RN aa5 Mabel Lemos RN RN ld1 Jacqueline Turner RN RN ll3 Corrections: (The following items were deleted from the chart) 18:45 18:15 Pulse 84bpm; Resp 16bpm; Pulse Ox 100% RA; aa5 aa5 18:46 18:23 Pulse 84bpm; Resp 16bpm; Pulse Ox 100% RA; aa5 aa5
--- NOTE | 2022-03-16 18:17 | EDPHYS ---
Physician Documentation [facility] Name: Ander Lan Age: 26 yrs Sex: Female : 1995 Arrival Date: 03/16/2022 Time: 16:37 Bed 30 Private MD: [facility] ED Physician Sulaiman Riddle HPI: 03/16 16:55 This 26 yrs old Female presents to ER via Ambulatory with complaints of carmen Epigastric Pain. 16:55 The patient presents with abdominal pain in the epigastric area, in the upper abdomen, carmen abdominal distention in the epigastric area, in the upper abdomen. Onset: The symptoms/episode began/occurred 2 day(s) ago. The symptoms do not radiate. Associated signs and symptoms: none. Severity of pain: At its worst the pain was mild in the emergency department the pain is unchanged. The patient has experienced similar episodes in the past, several times. 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 - Social history:: Smoking status: Patient denies any tobacco usage or history of. Patient/guardian denies using alcohol. - Family history:: not pertinent. ROS: 16:56 Constitutional: Negative for fever, chills, and weight loss, Eyes: Negative for injury, carmen pain, redness, and discharge, ENT: Negative for injury, pain, and discharge, Neck: Negative for injury, pain, and swelling, Cardiovascular: Negative for chest pain, palpitations, and edema, Respiratory: Negative for shortness of breath, cough, wheezing, and pleuritic chest pain, Back: Negative for injury and pain, : Negative for injury, bleeding, discharge, and swelling, MS/Extremity: Negative for injury and deformity, Skin: Negative for injury, rash, and discoloration, Neuro: Negative for headache, weakness, numbness, tingling, and seizure, Psych: Negative for depression, anxiety, suicide ideation, homicidal ideation, and hallucinations, Allergy/Immunology: Negative for hives, rash, and allergies, Endocrine: Negative for neck swelling, polydipsia, polyuria, polyphagia, and marked weight changes, Hematologic/Lymphatic: Negative for swollen nodes, abnormal bleeding, and unusual bruising. 16:56 Abdomen/GI: Positive for abdominal pain, of the epigastric area and right upper quadrant. Exam: 16:56 Constitutional: This is a well developed, well nourished patient who is awake, alert, carmen and in no acute distress. Head/Face: Normocephalic, atraumatic. Eyes: Pupils equal round and reactive to light, extra-ocular motions intact. Lids and lashes normal. Conjunctiva and sclera are non-icteric and not injected. Cornea within normal limits. Periorbital areas with no swelling, redness, or edema. ENT: Nares patent. No nasal discharge, no septal abnormalities noted. Tympanic membranes are normal and external auditory canals are clear. Oropharynx with no redness, swelling, or masses, exudates, or evidence of obstruction, uvula midline. Mucous membranes moist. Neck: Trachea midline, no thyromegaly or masses palpated, and no cervical lymphadenopathy. Supple, full range of motion without nuchal rigidity, or vertebral point tenderness. No Meningismus. Chest/axilla: Normal chest wall appearance and motion. Nontender with no deformity. No lesions are appreciated. Cardiovascular: Regular rate and rhythm with a normal S1 and S2. No gallops, murmurs, or rubs. Normal PMI, no JVD. No pulse deficits. Respiratory: Lungs have equal breath sounds bilaterally, clear to auscultation and percussion. No rales, rhonchi or wheezes noted. No increased work of breathing, no retractions or nasal flaring. Back: No spinal tenderness. No costovertebral tenderness. Full range of motion. Pelvic Exam: Normal external genitalia. Speculum exam with closed cervical os, no discharge or bleeding noted. Bimanual exam with normal adnexa, no adnexal or cervical motion tenderness. Normal uterus. Female : Normal external genitalia. Skin: Warm, dry with normal turgor. Normal color with no rashes, no lesions, and no evidence of cellulitis. MS/ Extremity: Pulses equal, no cyanosis. Neurovascular intact. Full, normal range of motion. Neuro: Awake and alert, GCS 15, oriented to person, place, time, and situation. Cranial nerves II-XII grossly intact. Motor strength 5/5 in all extremities. Sensory grossly intact. Cerebellar exam normal. Normal gait. Psych: Awake, alert, with orientation to person, place and time. Behavior, mood, and affect are within normal limits. 16:56 Abdomen/GI: Inspection: abdomen appears normal, Bowel sounds: normal, Palpation: mild abdominal tenderness, moderate abdominal tenderness, in the epigastric area and right upper quadrant, Liver: no appreciated palpable abnormalities, Hernia: not appreciated. 16:56 Abdomen/GI: Indicators: Huang's sign is negative. Vital Signs: 16:42 BP 116 / 79; Pulse 66; Resp 18; Temp 98.6(TE); Pulse Ox 100% on R/A; Weight 86.18 kg; ld1 Height 5 ft. 4 in. (162.56 cm); Pain 10/10; 18:23 BP 106 / 67; Pulse 84; Resp 16; Pulse Ox 100% on R/A; aa5 20:00 BP 102 / 70; Pulse 63; Resp 18; Pulse Ox 98% ; ll3 16:42 Body Mass Index 32.61 (86.18 kg, 162.56 cm) ld1 MDM: 16:46 Patient medically screened. carmen 17:02 Differential diagnosis: cholecystitis, Cholelithiasis, diverticulitis, non-specific abd carmen pain, Peptic Ulcer Disease, urinary tract infection. Data reviewed: vital signs, nurses notes, lab test result(s), radiologic studies, ultrasound. Data interpreted: quality assurance monitor final: rate is 66 beats/min, rhythm is regular, Pulse oximetry: on room air is 100 %. Counseling: I had a detailed discussion with the patient and/or guardian regarding: the historical points, exam findings, and any diagnostic results supporting the discharge/admit diagnosis, lab results, radiology results. 03/16 16:51 Order name: CBC with Diff; Complete Time: 17:[address] [facility] 03/16 16:51 Order name: CMP; Complete Time: 17:[address] [facility] 03/16 16:51 Order name: Lipase; Complete Time: 17:[address] [facility] 03/16 16:52 Order name: SARS-COV-2 RT PCR (Document "Date of Onset" if Symptomatic) [facility] 03/16 17:19 Order name: Urine Dipstick-Ancillary [facility] 03/16 16:51 Order name: Abdomen Limited US; Complete Time: 17:[address] [facility] 03/16 16:51 Order name: IV Saline Lock; Complete Time: 17:[address] [facility] 03/16 16:51 Order name: Labs collected and sent; Complete Time: 17:[address] [facility] 03/16 16:51 Order name: Urine Dipstick-Ancillary (obtain specimen); Complete Time: 17:[address] [facility] 03/16 16:51 Order name: Urine Test (obtain specimen); Complete Time: 17:[address] [facility] Administered Medications: 17:33 Drug: Zofran (Ondansetron) 4 mg Route: IVP; Site: right antecubital; aa5 17:34 Drug: morphine 2 mg Route: IVP; Site: right antecubital; aa5 17:35 Drug: NS 0.9% 1000 ml Route: IV; Rate: 1 bolus; Site: right antecubital; aa5 18:23 Follow up: IV Status: Completed infusion; IV Intake: 1000ml aa5 17:35 Drug: Pepcid (famotidine) 20 mg Route: IVP; Site: right antecubital; aa5 18:23 Drug: Zosyn (piperacillin-tazobactam) 3.375 grams Route: IVPB; Infused Over: 60 mins; aa5 Site: right antecubital; 19:34 Follow up: Response: No adverse reaction; IV Status: Completed infusion; IV Intake: ll3 100ml 19:34 Drug: morphine 2 mg Route: IVP; Site: right antecubital; ll3 21:49 Follow up: Response: No adverse reaction; Marked relief of symptoms ll3 Disposition Summary: 03/16/22 18:15 Hospitalization Ordered Hospitalization Status: Observation carmen Provider: Caden Zelaya cha [facility] carmen Condition: Stable carmen Problem: new carmen Symptoms: have improved carmen Bed/Room Type: Standard [facility] Room Assignment: 221(03/16/22 20:39) Diagnosis - Other cholelithiasis with obstruction - choledocholithiasis carmen - Upper abdominal pain, unspecified carmen Forms: - Medication Reconciliation Form carmen - SBAR form carmen Signatures: Dispatcher [employer] EDOK Michelle Valentine RN RN mw Anderson, Corey, MD MD cha Calderon, Audri, RN RN aa5 Mabel Lemos RN RN ld1 Jacqueline Turner RN RN ll3 Corrections: (The following items were deleted from the chart) 20:39 18:15 carmen morton
[2022-03-16] MEDS ORDERED: NA CHLORIDE 0.9% 100 ML IV ONE (18:18)
[2022-03-16] MEDS ORDERED: PIPERACIL/TAZO 3.375 GM VIAL IV ONE (18:18)
[2022-03-16] MEDS ORDERED: ACETAMINOPHEN 325 MG TABLET PO PRN (22:16)
[2022-03-16] MEDS: NA CHLORIDE 0.9% 1,000 ML IV SCH (22:40)
[2022-03-16] MEDS: FAMOTIDINE 20 MG/2 ML VIAL IV SCH (23:03)
[2022-03-16 23:08] VITALS: BMI 32.5
[2022-03-17] MEDS: PIPER TAZO 3.375 GM in NA CHLORIDE 0.9% 100 ML IV SCH ×3 (01:14→17:16)
[2022-03-17 03:41] LABS: Absolute Lymphocytes (CBC) 3.5 K/uL (0.7-4.9); Lymphocytes % 30.6 % (15.3-44.8); MPV 7.4 fL (7.6-11.3); RBC Red Blood Cell Count 3.97 M/uL (3.86-4.86)
[2022-03-17 03:57] LABS: Albumin 2.9 g/dL (3.4-5.0); Bilirubin Direct 0.2 mg/dL (0-0.2); Bilirubin Total 0.6 mg/dL (0.2-1.0); Potassium 4.4 mmol/L (3.5-5.1); Protein, Total 6.2 g/dL (6.4-8.2)
[2022-03-17] MEDS ORDERED: D10W 250 ML IV ONE (05:44)
[2022-03-17] MEDS: NA CHLORIDE 0.9% 1,000 ML IV SCH ×2 (05:47→14:16)
[2022-03-17] MEDS ORDERED: D10W 250 ML IV SCH (06:00)
[2022-03-17] MEDS: MORPHINE 4 MG/ML SYR IV PRN ×2 (07:13→19:18)
[2022-03-17] MEDS: ONDANSETRON 4 MG/2 ML VIAL IV PRN ×2 (07:13→17:14)
[2022-03-17] MEDS ORDERED: NA CHLORIDE 0.9% 100 ML ONE (07:51)
[2022-03-17] MEDS: FAMOTIDINE 20 MG/2 ML VIAL IV SCH ×2 (08:10→20:25)
[2022-03-17 12:08] LABS: Urine Specific Gravity/Preg >1.030 (1.005-1.030)
[2022-03-17] MEDS ORDERED: MIDAZOLAM HCL 2 MG/2 ML INJ ONE (12:48)
[2022-03-17] MEDS ORDERED: ROCURONIUM 50 MG/5 ML VIAL IV ONE (12:48)
[2022-03-17] MEDS ORDERED: ONDANSETRON 4 MG/2 ML VIAL ONE ×2 (12:48→15:17)
[2022-03-17] MEDS ORDERED: FENTANYL CITR 100 MCG/2 ML ONE (12:48)
[2022-03-17] MEDS ORDERED: propofoL 200 MG/20 ML VIAL IV ONE (12:48)
[2022-03-17] MEDS ORDERED: LIDOCAINE 2% MPF 5 ML VIAL ONE (12:48)
--- NOTE | 2022-03-17 12:49 | P.HP ---
Date of Service: 03/17/22 PC: This 26-year-old female presented to the emergency room with severe right upper quadrant abdominal pain for diagnosis and treatment. HPC: Patient has been having nausea, and intermittent bouts of mild abdominal pain over the last few weeks. However yesterday the pain intensified, would unrelenting, almost as bad as labor pains. She was evaluated and found to have cholecystitis with cholelithiasis. PSHx: Gastric sleeve surgery PMHx: Type 1 diabetes controlled by insulin pump, thyroid disease Social Hx: No known allergies Sys R: No cough, wheeze, shortness of breath. No chest pain or palpitations. Denies any urinary tract complaints. O/E: Awake alert vital signs are stable HEENT: Nonicteric Chest: Chest movement equal bilaterally Abd: Mild right upper quadrant tenderness [place]: Intact Data: Has documented cholecystitis with cholelithiasis, mildly dilated common bile duct Impression: Cholecystitis with cholelithiasis Plan: I will taken the operating room for laparoscopic possible open cholecystectomy with a cholangiogram. The risks of this procedure have been discussed. The possibility of bleeding, infection, injury to bile ducts blood vessels of the intestines has been explained. The possible need for further surgeries and procedures, including ERCP, were outlined. She understands and wants us to proceed.
[2022-03-17] MEDS ORDERED: KETOROLAC 30 MG/ML INJ ONE (13:45)
[2022-03-17] MEDS ORDERED: METOCLOPRAMIDE 10 MG/2mL INJ ONE (13:46)
[2022-03-17] MEDS ORDERED: GLYCOPYRROLATE 0.2 MG/ML SYR ONE (13:54)
[2022-03-17] MEDS ORDERED: EPHEDRINE SULF 50 MG/ML VIAL ONE (13:56)
--- NOTE | 2022-03-17 14:54 | P.OP ---
Preoperative diagnosis: Cholecystitis with cholelithiasis, possible choledocholithiasis Postoperative diagnosis: Cholecystitis with cholelithiasis Primary procedure: Laparoscopic cholecystectomy Secondary procedure: Cholangiogram Anesthesia: General Estimated blood loss: Less than 10 cc Specimen: 1 gallbladder and contents Operative Technique: The patient brought the operating room placed supine on the table. After the induction of adequate general endotracheal anesthesia, the area of the abdomen was prepped with a chlorhexidine solution, her glucose monitors were isolated, and she was draped in the usual aseptic manner. A subumbilical incision was made. This was brought down through the skin and subcutaneous tissue. We initially tried to enter the peritoneal cavity using a Veress needle, however I was not comfortable as the patient has had previous surgeries to this area. Using 2 hemostats, we elevated the fascia cut down carefully until we encountered the peritoneum. Blunt finger entry was used to enter the peritoneal cavity. This was dilated up using the 10 mm blunt trocar. We were now able to establish pneumoperitoneum under approximately 12 mmHg. Under direct vision a 5 mm trocar was placed in the upper midline, and 2 other 5 mm trochars on the right lateral side of the abdomen. The patient was now placed in reverse Trendelenburg. She was then rolled to the left. We could visualize the right upper quadrant. We could see that the patient had distended gallbladder that showed signs of acute inflammation. The fundus of the gallbladder was grasped. Another was placed on by Agee's pouch. Gentle dissection of this area showed that the area was quite edematous. The peritoneum was taken off of the cystic duct. Having isolated a clip was placed between the gallbladder and the cystic duct. An opening was made into the cystic duct through which we saw numerous stones falling out of the cystic duct. We were able to carefully milked this. We got about 6 stones out of this area that had been dilated and then we saw where it came back to the normal taper of the cystic duct. The cholangiogram was now inserted. Common bile duct was d ilated but we had good flow of contrast into the duodenum. Is interesting to note the amount of valves were in the cystic duct which I assume protected from further stones infiltrating the common bile duct. The catheter was then removed. Clips were placed on the distal portion of the cystic duct. The cystic artery was dealt with in a similar fashion. The cystic duct was then transected and the gallbladder was dissected free from the liver bed. It was placed into an Endo Catch and brought out through the umbilical trocar site. At this point the umbilical fascial defect was approximated using the Endo Close and an absorbable suture. The irrigating fluid was aspirated from the peritoneal cavity. The patient was returned to the neutral position on the OR table. Once again the right and left paracolic gutters were aspirated. At this point the sutures were tied, the pneumoperitoneum collapsed and navdeep applied to the skin. At the end of the procedure she was stable and sent to the recovery room. Needle sponge instrument count were correct. No drains were placed. Complications: None Transferred to: Recovery Room Condition: Good
[2022-03-17] MEDS: MEPERIDINE HCL 25 MG/ML SYR ONE ×2 (14:55→15:06)
--- NOTE | 2022-03-17 15:08 | RAD REPORT ---
EXAM DESCRIPTION: RAD - Fluoroscopy <1 Hour - 03/17/2022 2:49 pm FINDINGS: There were 11 portable C-arm views submitted from a fluoroscopic assisted intraoperative c holangiogram. Assessment is limited when only selected images are available. Fluoro time was 0.5 minutes with cumulative dose of 17.3 mGy.
[2022-03-17] MEDS ORDERED: NA CHLORIDE 0.9% 1,000 ML ONE (15:16)
[2022-03-17] MEDS: HYDROMORPHONE HCL 1 MG/ML INJ ONE ×2 (15:18→15:54)
[2022-03-17] MEDS: HYDROCODONE/APAP 7.5/325 MG TAB PO PRN (19:26)
[2022-03-17] MEDS ORDERED: NA CHLORIDE 0.9% 500 ML IV ONE (21:42)
[2022-03-18] MEDS: PIPER TAZO 3.375 GM in NA CHLORIDE 0.9% 100 ML IV SCH ×2 (00:01→07:46)
[2022-03-18] MEDS: NA CHLORIDE 0.9% 1,000 ML IV SCH ×3 (00:01→07:46)
[2022-03-18] MEDS: HYDROCODONE/APAP 7.5/325 MG TAB PO PRN ×3 (00:36→13:56)
[2022-03-18] MEDS: FAMOTIDINE 20 MG/2 ML VIAL IV SCH (07:46)
[2022-03-18 08:54] VITALS: TEMP 98.4
[2022-03-18 09:11] VITALS: O2SAT 98
[2022-03-18] MEDS: MORPHINE 4 MG/ML SYR IV PRN (09:42)
[2022-03-18] MEDS: ONDANSETRON 4 MG/2 ML VIAL IV PRN (09:45)
[2022-03-18 12:25] VITALS: BP 105/57
--- NOTE | 2022-03-18 14:24 | P.DS ---
Admission Date: 03/17/22 Discharge Date: 03/18/22 Disposition: ROUTINE DISCHARGE Discharge Condition: GOOD Reason for Admission: Acute postoperative abdominal pain Procedures: Laparoscopic cholecystectomy with intraoperative cholangiogram Brief History of Present Illness: Patient presented emergency room with severe right upper quadrant abdominal pain for diagnosis and treatment. Hospital Course: Patient was found to have acute on chronic cholecystitis with cholelithiasis. She was brought to the operating room for laparoscopic cholecystectomy with intraoperative cholangiogram. The patient had numerous small stones, some of these were impacted in the cystic duct. The cholangiogram was normal. The patient was admitted postoperatively for observation and pain control. Today she is up ambulating, tolerating a diet, and her pain is controlled on oral medication. She is deemed fit for discharge. Vital Signs/Physical Exam: Temp Pulse Resp BP Pulse Ox 98.4 F 73 16 105/57 L 98 03/18/22 12:00 03/18/22 12:00 03/18/22 13:56 03/18/22 12:00 03/18/22 13:56 Laboratory Data at Discharge: WBC 11.3 K/uL (4.3-10.9) H 03/17/22 02:52 Hgb 11.4 g/dL (12.0-15.0) L 03/17/22 02:52 Hct 35.0 % (36.0-45.0) L 03/17/22 02:52 Plt Count 303 K/uL (152-406) 03/17/22 02:52 Sodium 139 mmol/L (136-145) 03/17/22 02:52 Potassium 4.4 mmol/L (3.5-5.1) 03/17/22 02:52 BUN 7 mg/dL (7-18) 03/17/22 02:52 Creatinine 0.62 mg/dL (0.55-1.3) 03/17/22 02:52 Glucose 85 mg/dL (74-106) 03/17/22 02:52 Total Bilirubin 0.6 mg/dL (0.2-1.0) 03/17/22 02:52 AST 41 U/L (15-37) H 03/17/22 02:52 ALT 65 U/L (12-78) 03/17/22 02:52 Alkaline Phosphatase 78 U/L (45-117) 03/17/22 02:52 Lipase 80 U/L (73-393) 03/17/22 02:52 Home Medications: Apremilast [Otezla] 30 mg PO BID 03/16/22 Bariatric Multivitamin 1 cap PO DAILY 03/16/22 Calcium Carbonate [Calcium] 500 mg PO TID 03/16/22 Escitalopram [Lexapro] 20 mg PO DAILY 03/16/22 Iron 65mg 1 tab PO BID 03/16/22 Vitamin A 10,000 iu PO DAILY 03/16/22 Diet: ADA (Patient is diabetic, has continuous insulin pump, and is well versed and diets.) Activity: Ad silvia (Continue incentive spirometry, ambulated home, you may shower. A prescription for hydrocodone was called in to [facility] pharmacy. Take pain medicine as we discussed. Milk of magnesia as needed.) Followup: Caden Zelaya MD [ACTIVE - CAN ADMIT] - (Call to schedule appointment.) Neno Arauz, [Primary Care Provider] - (Call to schedule appointment)
== END 2022-03-18 15:00 | disposition home or self-care (01) | DRG 419 ==
LOC: ER 16:35 → ERHOLD 18:17 → 2ND 20:46 → OBSVTOIN 03-17 17:21
PROVIDERS: ADMIT Surgery; ATTEND Surgery
PROC: BF10YZZ Fluoroscopy of Bile Ducts using Other Contrast (ICD-10-PCS; 2022-03-17)
PROC: 0FT44ZZ Resection of Gallbladder, Percutaneous Endoscopic Approach (ICD-10-PCS; principal; 2022-03-17 12:30)
DX: K80.12 Calculus of gallbladder with acute and chronic cholecystitis without obstruction (principal); E10.9 Type 1 diabetes mellitus without complications; E05.00 Thyrotoxicosis with diffuse goiter without thyrotoxic crisis or storm; Z98.84 Bariatric surgery status; Z96.41 Presence of insulin pump (external) (internal); Z20.822 Contact with and (suspected) exposure to COVID-19
CPT/HCPCS: 36415; 76000; 76705; 80048; 80053; 80076; 81003; 81025; 82947; 83690; 85025; 88304; 94010; 96361; 96365; 96375; 99285; G0378; J1170; J2175; J2250; J2270; J2405; J2543; J2704; J2765; J3010; J3490; J7030; J7040; U0003